=== PATIENT | male | born 1965 | race Caucasian/White ===

== ENCOUNTER 2025-05-28 11:24 | Day surgery (SDC) | payer BC ==
[~2025-05-28] VITALS: Ht 190.5 cm; Wt 115.4 kg
[~2025-05-28 11:24] MED LIST: ALBU10.7 INH; AMIO200T73 PO; APIX5TAB3 PO; FURO40TA4 PO; IPRA3AMP31 INH; MAGNESIUM PO; METF-900 PO; METO-411 PO; MULLEIN PO; MULT1CAP20 PO; POTA-366 PO; RED500CA PO; TAMS-55 PO; TORS20TA3 PO
[2025-05-28 11:54] VITALS: BP 115/78; PULSE 136; RESP 15; TEMP 97.9; O2SAT 98
[2025-05-28] MEDS ORDERED: normal saline 1000ml 1,000 ML IV SCH (11:55)
[2025-05-28] MEDS ORDERED: MIDAZolam 1mg/ml 10ml vial IV ONE (11:55)
[2025-05-28] MEDS ORDERED: fentaNYL/PF 50MCG/1 ML 2ML syringe IV ONE (11:55)
[2025-05-28] MEDS ORDERED: atropine 0.1mg/ml 10ml syringe ONE (12:29)
[2025-05-28] MEDS ORDERED: amiodarone 50MG/ML inj IV ONE (12:29)
[2025-05-28] MEDS ORDERED: fentaNYL/PF 50MCG/1 ML 2ML syringe ONE (12:29)
[2025-05-28] MEDS ORDERED: midazolam 1 mg/ML 2ml injection ONE ×3 (12:29→12:49)
[2025-05-28 13:01] LABS: MEAN PLATELET VOLUME 9.5 FL (7.4-10.4); RED CELL DISTRIBUTION WIDTH 16.4 % (11.5-14.5)
[2025-05-28 13:06] LABS: CREATININE 1.43 MG/DL (0.60-1.10); TOTAL CARBON DIOXIDE 27.2 MMOL/L (24-32); eCRCL 66 ML/MIN; eGFR 50 ML/MIN
[2025-05-28 13:09] VITALS: BP 98/63; PULSE 75; RESP 16; O2SAT 97
[2025-05-28 13:09] LABS: APTT 29 SECONDS (22-32); INR 1.3 INR
--- NOTE | 2025-05-28 13:23 | ELECTROCARDIOGRAPH REPORT ---
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 CINDI Zacarias Measurements Intervals [place] Rate: 73 P: 45 RI: 176 QRS: 122 QRSD: 98 T: -56 QT: 458 QTc: 505 Interpretive Statements Sinus rhythm Consider left atrial enlargement Right axis deviation Borderline repolarization abnormality Prolonged QT interval Electronically Signed On 05-29-2025 19:16:[address] CINDI Zacarias Please click the below link to view image of tracing.
[2025-05-28 13:24] VITALS: BP 107/76; PULSE 77; RESP 16; O2SAT 97
[2025-05-28 13:39] VITALS: BP 104/69; PULSE 76; RESP 16; O2SAT 97
[2025-05-28 13:54] VITALS: BP 94/60; PULSE 73; RESP 16; O2SAT 97
[2025-05-28 14:09] VITALS: BP 100/66; PULSE 75; RESP 16; O2SAT 97
--- NOTE | 2025-06-01 20:45 | CARDIOLOGY REPORT ---
DATE OF SERVICE: 05/28/2025 DICTATING PHYSICIAN: Pan Negro MD CARDIOVERSION DATE OF PROCEDURE: 05/28/2025. NAME OF STUDY: Electrical cardioversion. PROCEDURE: The patient was brought to cardiac short stay where she was prepped in the usual manner. After gradual increments of Versed and fentanyl, and conscious sedation was obtained, the patient was cardioverted. The patient remained clinically and hemodynamically stable throughout the procedure. IMPRESSION: Successful electrical cardioversion to normal sinus rhythm without complication. Pan Negro MD TID: [id number] RECEIPT: [id number] LISSET/YOEL
== END 2025-05-28 15:30 | disposition home or self-care (01) ==
LOC: SSTAY O 11:24
PROVIDERS: ATTEND Student in an Organized Health Care Education/Training Program
DX: I48.91 Unspecified atrial fibrillation (principal); R94.31 Abnormal electrocardiogram [ECG] [EKG]; I11.0 Hypertensive heart disease with heart failure; I50.9 Heart failure, unspecified; E78.5 Hyperlipidemia, unspecified; I42.9 Cardiomyopathy, unspecified; G47.33 Obstructive sleep apnea (adult) (pediatric); Z86.718 Personal history of other venous thrombosis and embolism; Z86.711 Personal history of pulmonary embolism; Z79.84 Long term (current) use of oral hypoglycemic drugs; Z79.01 Long term (current) use of anticoagulants; Z79.899 Other long term (current) drug therapy; Z88.6 Allergy status to analgesic agent
CPT/HCPCS: 36415; 80048; 82948; 85025; 85610; 85730; 92960; 93005; J2250; J3010; J7030; 99152; A4615; J0282; J0461

== ENCOUNTER 2025-05-30 16:14 | Inpatient (IN) | payer BC ==
[~2025-05-30] VITALS: Ht 190.5 cm; Wt 117.5 kg
--- NOTE | 2025-05-30 17:15 | ELECTROCARDIOGRAPH REPORT ---
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 Paulino Samson Measurements Intervals [place] Rate: 71 P: 52 [place]: 179 QRS: 85 QRSD: 97 T: 71 QT: 511 QTc: 556 Interpretive Statements Sinus rhythm Borderline right axis deviation Prolonged QT interval Electronically Signed On 05-31-2025 19:29:[address] Paulino Samson Please click the below link to view image of tracing.
--- NOTE | 2025-05-30 17:55 | RADIOLOGY REPORT ---
CHEST RADIOGRAPH Indication: CP Technique: Single frontal view of the chest was obtained COMPARISON: None FINDINGS: Lines and Tubes: None Lungs: Clear Pleura: No effusion. No pneumothorax. Cardiomediastinal contours: Cardiomegaly Bones: Unremarkable IMPRESSION: Cardiomegaly
[2025-05-30 17:56] LABS: MEAN PLATELET VOLUME 9.3 FL (7.4-10.4); RED CELL DISTRIBUTION WIDTH 16.5 % (11.5-14.5)
--- NOTE | 2025-05-30 17:58 | Physician Documentation ---
History of Present Illness ~ Chief Complaint: Chest Pain Stated Complaint: TRANSFER Time Seen by MD: 16:37 HPI This very pleasant 59-year-old male with a recent history of cardio conversion due to atrial fibrillation presents today with acute left-sided squeezing chest pain. Patient is currently on Eliquis, has diabetes CHF hypertension and hyperlipidemia. He does have a life vest post cardiac D fib. His flour distributor is Dr. Negro. Patient says he had 30 minutes of chest pain yesterday which ultimately resolved however it reoccurred at 9:00 a.m. this morning. He reports having an episode of shortness a breath this morning in his well. He describes the pain as a squeezing pressure. This morning when he had his symptoms he reported that to his flour distributor's who advised him to go to [facility]. There he was evaluated for cardiac event. He had negative troponins there. They did perform a CT angio abdomen and pelvis with contrast. Patient was notable for right lung infiltrates indicating likely pneumonia. Mild cardiomegaly as well Medication Reconciliation Allergies: Coded Allergies: ibuprofen (Verified Allergy, Unknown, 05/28/25) Scheduled Albuterol Sulfate/Budesonide (Airsupra 90-80 Mcg Inhaler), 1 PUFF INH TID, (Reported) Amiodarone HCl (Amiodarone HCl), 1 TAB PO DAILY, (Reported) Apixaban (Eliquis), 1 TAB PO BID, (Reported) Furosemide (Furosemide), 1 TAB PO DAILY, (Reported) Ipratropium/Albuterol Sulfate (Duoneb 2.5-0.5 Mg/3 Ml Soln), 3 ML INH Q4H, (Reported) Metformin Hcl* (Metformin ER*), 1 TAB PO BID, (Reported) Metoprolol Succinate (Metoprolol Succinate), 1 TAB PO DAILY, (Reported) Multivits-Minerals/FA/Lycopene (Men's Daily Formula Capsule), 1 TAB PO DAILY, (Reported) Potassium Chloride (Potassium Chloride), 1 TAB PO DAILY, (Reported) Red Beet (Beet Root), 2 TAB PO DAILY, (Reported) Tamsulosin Hcl* (Flomax*), 1 TAB PO DAILY, (Reported) Torsemide (Torsemide), 1 TAB PO DAILY, (Reported) [Magnesium], 2,300 MG PO DAILY, (Reported) [Mullein], 1 CAP PO BID, (Reported) Discontinued Medications Metolazone (Metolazone), 1 TAB PO DAILY, (Reported) Discontinued Reason: patient no longer taking Review of Systems All Other Systems at this time: Reviewed and Negative ROS As stated above in the HPI, otherwise all systems are reviewed and negative. Physical Exam Vital Signs: Temperature: 97.3, Source: Oral, Heart Rate: 70, Respiratory Rate: 19, BP: 111/69, Pulse Oximetry: 100, Weight: 115.000 Physical Exam General: Alert, no apparent distress. Respiratory: Lungs clear, no respiratory distress. Cardiovascular: Regular rate and rhythm, no murmurs. Gastrointestinal: Soft, nontender, nondistended. Bowels sounds present. Neurologic: Oriented x4. Psychiatric: Normal mood and affect. Skin: Normal color, warm and dry. No edema, no ecchymosis. Progress Results/Orders Results/Orders Orders - MICHELE CHAHAL [employer] FIELD COORDINATOR Chest,Single View (05/30/25 17:30) Monitor (05/30/25 17:13) Saline Lock (05/30/25 17:13) Oxygen (05/30/25 17:13) Straight Cath For Urine Sample (05/30/25 17:55) Page Hospitalist (05/30/25 18:17) Fill Out Med Reconciliation (05/30/25 18:17) Heparin 25,000 Unit/250ml Bag (Heparin 2 (05/30/25 19:05) Heparin 10,000 Unit/Ml 1ml (Heparin 10,0 (05/30/25 19:05) Cbc/Diff (05/31/25 03:00) Cbc/Diff (06/01/25 03:00) Cbc/Diff (06/02/25 03:00) Cbc/Diff (06/03/25 03:00) Cbc/Diff (06/04/25 03:00) Completed Orders - [facility] [employer] FIELD COORDINATOR Chest,Single View (05/30/25 17:30) Cbc/Diff (05/30/25 17:13) PBNP (05/30/25 17:13) Electrocardiogram (05/30/25 17:13) Hs Troponin I W Calculations (05/30/25 17:13) Hs Troponin I W Calculations (05/30/25 19:13) Hs Troponin I W Calculations (05/30/25 20:13) Urinalysis, Cult If Indicated (05/30/25 17:55) CMP (05/30/25 17:44) Pt Inr (05/30/25 19:03) PTT (05/30/25 19:03) Heparin 10,000 Unit/Ml 1ml (Heparin 10,0 (05/30/25 19:05) Electrocardiogram (05/30/25 ) Message To Nursing (05/30/25 19:30) Hgb A1c (05/30/25 17:44) Medications Received in ER Medications (Trade) Dose Ordered Sig/Magaly Route PRN Reason Start Time Stop Time Status Last Admin Dose Admin (heparin 10,000 unit/ml 1ml inj) 4,000 units ONCE ONCE IV 05/30/25 19:05 05/30/25 19:21 DC 05/30/25 19:39 4,000 UNITS Heparin Sodium/ Dextrose 250 ml @ 10 mls/hr Q25H PRN IV TO MAINTAIN PTT WITHIN RANGE 05/30/25 19:05 05/30/25 19:40 10 MLS/HR Vital Signs 05/30/25 05/30/25 05/30/25 05/30/25 16:16 17:14 18:17 18:36 Temp 97.3 Pulse 69 70 73 Resp 15 19 15 18 B/P (MAP) 93/60 111/69 (83) 103/68 (80) Pulse Ox 95 100 95 05/30/25 18:36 B/P (MAP) Laboratory Tests Test 05/30/25 17:00 05/30/25 17:44 Urine Specimen Description Urinal Urine Color Yellow Urine Clarity Clear Urine pH 6.0 Urine Specific [place] <=1.005 Urine Protein Negative Urine Glucose (UA) Negative Urine Ketones Negative Urine Occult Blood Negative Urine Nitrite Negative Urine Bilirubin Negative Urine Urobilinogen 0.2 Urine Leukocyte Esterase Negative Urine Culture Indicated Not ind Volume Urine Centrifuged 10 ml Urine Comment White Blood Count 9.4 Red Blood Count 4.75 Hemoglobin 13.8 L Hematocrit 40.9 L Mean Corpuscular Volume 86.0 Mean Corpuscular Hemoglobin 29.1 Mean Corpuscular Hemoglobin Concent 33.8 Red Cell Distribution Width 16.5 H Platelet Count 166 Mean Platelet Volume 9.3 Neutrophils (%) (Auto) 87.8 H Lymphocytes (%) (Auto) 6.9 L Monocytes (%) (Auto) 4.9 Eosinophils (%) (Auto) 0.1 Basophils (%) (Auto) 0.3 Neutrophils # (Auto) 8.3 H Lymphocytes # (Auto) 0.6 L Monocytes # (Auto) 0.5 Eosinophils # (Auto) 0.0 Basophils # (Auto) 0.0 CBC Comment Prothrombin Time 13.8 H INR International Normalized Ratio 1.4 Activated Partial Thromboplast Time 28 Coagulation Comments Sodium Level 136 Potassium Level 3.8 Chloride Level 100 Carbon Dioxide Level 24.9 Anion Gap 11 Blood Urea Nitrogen 34 H Creatinine 1.56 H Estimated GFR/1.73 m2 46 BUN/Creatinine Ratio 21.8 H Glucose Level 167 H Hemoglobin A1c 6.9 H Calcium Level 8.9 Total Bilirubin 2.0 H Aspartate Amino Transf (AST/SGOT) 149 H Alanine Aminotransferase (ALT/SGPT) 41 Alkaline Phosphatase 89 Troponin I High Sensitivity 11523 *H Troponin I High Sens Percent Delta Troponin I Hi Sens Absolute Change Pro-B-Type Natriuretic Peptide 8180 H Total Protein 6.8 Albumin 3.7 Globulin 3.1 Albumin/Globulin Ratio 1.2 Chemistry Comments Medical Decision Making Findings Patient has had intermittent chest pain while in the ED. his initial troponins at [facility] were negative. However our 1st results came back with a grossly elevated proBNP and 84284+ troponin. Starting patient on heparin along with a drip. Ordered a 2nd EKG which showed no signs of ST-elevation or ST-depression. At this point admitting him for cardiac evaluation. Differential Dx:Considerations: Include: angina, aortic dissection, chest wall pain, cholelithiasis, CHF, costochondritis, esophageal reflux/spasm, gastritis, herpes zoster, myocardial infarction, pericarditis, pleuritis, pancreatitis, pneumonia, pneumothorax, pulmonary embolus, other Departure Impression: Primary Impression: Chest pain Additional Impressions: Acute chest pain NSTEMI (non-ST elevation myocardial infarction) Referrals: NO PRIMARY CARE PROVIDER (PCP) Signature Scribe Signature: l Attestation: Scribed for Michele Chahal Salon Supervisor by Michele Avila NP . 05/30/25 17:58 MICHELE CHAHAL NP May 30, 2025 17:58
[2025-05-30 18:13] LABS: LEUKOCYTE ESTERASE ,URINE NEGATIVE (Neg); NITRITES, URINE NEGATIVE (Neg); OCCULT BLOOD,URINE NEGATIVE (Neg)
[2025-05-30 18:17] LABS: UA COLLECTION TYPE URINAL
[2025-05-30 18:22] LABS: CREATININE 1.56 MG/DL (0.60-1.10); TOTAL CARBON DIOXIDE 24.9 MMOL/L (24-32); eCRCL 60 ML/MIN; eGFR 46 ML/MIN
[2025-05-30 18:26] LABS: PRO BRAIN NATRIURETIC PEPTIDE 8180 PG/ML (0-125)
--- NOTE | 2025-05-30 19:17 | ELECTROCARDIOGRAPH REPORT ---
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 Paulino Samsno Measurements Intervals [place] Rate: 72 P: 51 DC: 176 QRS: 93 QRSD: 104 T: 78 QT: 502 QTc: 550 Interpretive Statements Sinus rhythm Probable left atrial enlargement Right axis deviation Prolonged QT interval Electronically Signed On 05-31-2025 19:29:[address] Paulino Samson Please click the below link to view image of tracing.
[2025-05-30 19:22] LABS: APTT 28 SECONDS (22-32); INR 1.4 INR
[2025-05-30] MEDS: heparin 10,000 units/1 ML INJ IV ONE (19:39)
[2025-05-30] MEDS: heparin 25,000 UNIT/250ml bag 250 ML IV PRN (19:40)
[2025-05-30] MEDS: MESSAGE TO NURSING IV ONE (19:41)
[2025-05-30] MEDS: morphine 4 MG/ML inj SYRINge IV ONE (20:07)
[2025-05-30] MEDS: ondansetron/PF 4mg/2ml inj IV ONE (20:07)
[2025-05-30] MEDS ORDERED: magnesium sulf-water 4G/100mL 100 ML IV PRN (20:10)
[2025-05-30] MEDS ORDERED: potassium Cl 40MEQ/1/2NS 520ml 520 ML IV PRN (20:10)
[2025-05-30] MEDS ORDERED: mag hydrox/Alum hydrox/simeth 30ml oral suspension PO PRN (20:10)
[2025-05-30] MEDS ORDERED: potassium Cl 20 mEq SR tablet PO PRN (20:10)
[2025-05-30] MEDS ORDERED: magnesium Cl slow-release 64mg tablet PO PRN (20:10)
[2025-05-30] MEDS ORDERED: magnesium sulf-water 2g/50mL 50 ML IV PRN (20:10)
[2025-05-30] MEDS ORDERED: magnesium hydroxide 30ml (MOM) UD suspension PO PRN (20:10)
[2025-05-30] MEDS ORDERED: ondansetron/PF 4mg/2ml inj IV PRN (20:10)
--- NOTE | 2025-05-30 20:48 | HISTORY AND PHYSICAL-Residence ---
History & Physical Providers to CC Resident Creating Document: [facility] ~ History of Present Illness Reason for Admit\Complaint: NSTEMI History of Present Illness This is a very pleasant 59-year-old male patient with a past medical history of HFrEF, atrial fibrillation status post cardioversion, prediabetes, pulmonary emboli in 2022, transferred from [facility] for chest pain that started yesterday at 9:00 a.m. and was initially intermittent. However, today at 9:00 a.m. it abruptly increased to 10/10 in intensity, persistent, radiating to the back, described as a pressure, worse with movement and improving with rest, associated with nausea, vomiting, dizziness and lightheadedness. Patient states gaining 7 lb for the last two days, but no significant shortness of breath or any respiratory symptoms. The patient had an elective cardioversion two days ago for AFib, without complication. He uses [facility] and is followed by Dr. Negro. Allergies: Coded Allergies: ibuprofen (Verified Allergy, Unknown, 05/28/25) Home Medications Home Medications Active Reported [Magnesium] 2,300 Mg PO DAILY Duoneb 2.5-0.5 Mg/3 Ml Soln (Ipratropium/Albuterol Sulfate) 0.5 Mg-3 Mg (2.5 Mg Base)/3 Ml Ampul.neb 3 Ml INH Q4H [Mullein] 1 Cap PO BID Beet Root (Red Beet) 500 Mg Capsule 2 Tab PO DAILY Men's Daily Formula Capsule (Multivits-Minerals/FA/Lycopene) 0.4 Mg-600 Mcg Capsule 1 Tab PO DAILY Airsupra 90-80 Mcg Inhaler (Albuterol Sulfate/Budesonide) 90 Mcg-80 Mcg/Actuation Hfa.aer.ad 1 Puff INH TID Flomax* (Tamsulosin HCl) 0.4 Mg Cap.sr.24h 1 Tab PO DAILY Eliquis (Apixaban) 5 Mg Tablet 1 Tab PO BID Torsemide 20 Mg Tablet 1 Tab PO DAILY Metformin ER* (Metformin HCl) 500 Mg Tab.sr.24h 1 Tab PO BID Metoprolol Succinate 100 Mg Tab.sr.24h 1 Tab PO DAILY Furosemide 40 Mg Tablet 1 Tab PO DAILY Potassium Chloride 20 Meq Tablet.er 1 Tab PO DAILY Amiodarone HCl 200 Mg Tablet 1 Tab PO DAILY Past Medical History Past Medical History HFrEF Atrial fibrillation status post cardioversion Prediabetes Pulmonary emboli in 2022 Past Surgical History Surgical History Comment Left hand surgery Meniscal surgery Past Social History Smoking: Non-Smoker Alcohol Use: None Drug Use: None Lives with: Spouse Lives In: Home ROS All Other Systems: Reviewed and Negative Constitutional: Reports: no symptoms reported Eyes: Reports: no symptoms reported ENT: Reports: no symptoms reported Respiratory: Reports: shortness of breath Cardiovascular: Reports: chest pain, diaphoresis, lightheadedness Gastrointestinal: Reports: nausea, vomiting Genitourinary: Reports: no symptoms reported Male Genitalia: Reports: no symptoms reported Neurological: Reports: no symptoms reported Musculoskeletal: Reports: no symptoms reported Integumentary: Reports: no symptoms reported Allergic/Immunologic: Reports: no symptoms reported Hematologic/Lymphatic: Reports: no symptoms reported Endocrine: Reports: no symptoms reported Psychiatric: Reports: no symptoms reported Exam Vitals: Vital Signs Date Time Temp Pulse Resp B/P (MAP) Pulse Ox O2 Delivery O2 Flow Rate FiO2 05/30/25 18:36 05/30/25 18:36 73 18 95 05/30/25 16:16 97.3 General: General: Awake and Alert, no acute distress. HEENT: Conjunctiva pink, Sclera clear, Mucus Membranes moist. Neck: Supple without masses and tenderness. Resp: Unlabored. Rales auscultated in the lower 3rd bilaterally. Heart: Regular Rate and rhythm, normal S1 and S2 without murmur, rub or gallop. Abdomen: Soft and non tender no organomegaly Extremities: Bilateral lower extremity 2+ pitting edema. No cyanosis or clubbing. Skin: Warm and Dry. Diagnostic Data Last Recorded Lab Results: 05/30/25 17405/30/25 174 Diagnostic Data: Laboratory Tests Test 05/30/25 17:44 Prothrombin Time 13.8 SECONDS (9.0-12.0) H INR International Normalized Ratio 1.4 INR Activated Partial Thromboplast Time 28 SECONDS (22-32) Coagulation Comments Advance Care Planning Advanced Care plannin - 30 Minutes (Patient wishes to be full code) Additional Plan Assessment This is a 59-year-old male patient with a past medical history of HFrEF, atrial fibrillation status post cardioversion, prediabetes, pulmonary emboli in 2022, admitted for NSTEMI. Patient was started on aspirin and heparin drip, Dr. Negro was informed and recommended keeping the patient NPO and letting Grace know in the morning. NSTEMI Heart score 7 points (high score), YOHANNES 2 points (8% all-cause mortality risk), AMANDA 118 points (7% probability of ) EKG: Sinus rhythm, nonspecific ST-T changes Troponin: 81817 - 45639 - >380125 Chest CTA (external): Thoracic aorta is normal and there is no dissection. There is no pleural effusion or pneumothorax or lymphadenopathy. DR mild infiltrates in the right lower lobe and right middle lobe. Chest x-ray: Cardiomegaly Patient received aspirin loading dose at [place] Started on heparin drip Started on atorvastatin 40 mg and lisinopril 5 mg Continue metoprolol succinate [address] Negro was informed and recommended keeping the patient NPO and letting Grace know in the morning Acute on chronic HFrEF (previous EF 25%, as per patient) Patient gained 7 lb in the last 48 hours, rales on examination and bilateral lower extremity pitting edema Started on Lasix 40 mg IV b.i.d. Hold home medication Lasix and torsemide p.o. Ordered echocardiogram Atrial fibrillation, s/p cardioversion on 05/28/2025 Current on sinus rhythm Hold Eliquis, current on heparin drip Continue amiodarone 200 mg daily Continue metoprolol 100 mg daily Chronic kidney disease - stage IIIA Creatinine 1.56 (1.43 on 05/28/2025) Monitor daily for signs of RAJESH Prediabetes Ordered A1c Hold metformin Code Status: Full code DVT prophylaxis: Heparin Analgesia/sedation: Morphine Line/tube: PIV GI prophylaxis: Pantoprazole Nutrition: NPO after midnight Physical therapy: Ordered Prognosis: Guarded Disposition: Continue medical treatment. Contact Grace in a.m.. Date of Service: May 30, 2025 Billing Provider: DEMETRIA GONZALEZ MD, LUCAS, RES May 30, 2025 20:48
[2025-05-30 21:55] VITALS: BP 104/67; PULSE 71; RESP 27; TEMP 97.3; O2SAT 93
[2025-05-30 22:00] VITALS: RESP 27; O2SAT 93
[2025-05-31] VITALS (17 sets, daily range): BP systolic 73–104; BP diastolic 39–72; PULSE 52–73; RESP 14–27; TEMP 97–97.9; O2SAT 92–98
[2025-05-31 02:24] LABS: MEAN PLATELET VOLUME 9.7 FL (7.4-10.4); RED CELL DISTRIBUTION WIDTH 16.3 % (11.5-14.5)
[2025-05-31] MEDS: normal saline 1000ml 1,000 ML IV ONE (02:39)
[2025-05-31] MEDS: MESSAGE TO NURSING IV ONE ×2 (02:55→09:10)
[2025-05-31] MEDS: heparin 10,000 units/1 ML INJ IV PRN (03:00)
[2025-05-31 03:13] LABS: CREATININE 1.91 MG/DL (0.60-1.10); TOTAL CARBON DIOXIDE 22.5 MMOL/L (24-32); eCRCL 49 ML/MIN; eGFR 36 ML/MIN
--- NOTE | 2025-05-31 07:02 | ELECTROCARDIOGRAPH REPORT ---
[facility] Test Date: 2025-05-31 Test Time: 01:38:25 Pat Name: ERIBERTO ZAPATA Department: 3rd FLOOR PCU Room: [facility] 2013 Gender: M Shank Boner: : 1965 Requested By: [facility] Order Number: [id number] Reading MD: Dr. CINDI Zacarias Measurements Intervals [place] Rate: 71 P: 65 [place]: 180 QRS: 100 QRSD: 118 T: 90 QT: 539 QTc: 586 Interpretive Statements Sinus rhythm Probable left atrial enlargement Left posterior fascicular block Consider anterior infarct Electronically Signed On 06-01-2025 13:05:[address] CINDI Zacarias Please click the below link to view image of tracing.
[2025-05-31] MEDS: K and/or MAG REPLACEMENT MC SCH (08:00)
[2025-05-31] MEDS: docusate sod 100mg capsule PO SCH (08:00)
[2025-05-31] MEDS: metoprolol succinate 25mg (24-HOUR) SR. Tablet PO SCH (08:01)
[2025-05-31] MEDS: aspirin 81mg, enteric-coated 1 TAB TABLET.DR PO SCH (08:02)
[2025-05-31] MEDS: nitroGLYCERIN-Tridil 50MG/D5W 250 ML IV SCH (11:35)
[2025-05-31] MEDS: DOBUTamine-DoBUTrex 500mg/D5W 250 ML IV SCH ×2 (12:09→23:02)
[2025-05-31] MEDS ORDERED: verapamil 2.5 mg/ml inj IV ONE (12:35)
[2025-05-31] MEDS ORDERED: LIDOcaine 1% 30ml preserv. free vial ONE (12:35)
[2025-05-31] MEDS ORDERED: fentaNYL/PF 50MCG/1 ML 2ML syringe ONE (12:36)
[2025-05-31] MEDS ORDERED: heparin 1,000unit/ml 10ml vial 10 ML ONE (12:36)
[2025-05-31] MEDS ORDERED: midazolam 1 mg/ML 2ml injection ONE (12:36)
[2025-05-31] MEDS ORDERED: clopidogrel 300mg tablet ONE (13:40)
[2025-05-31] MEDS ORDERED: ondansetron/PF 4mg/2ml inj ONE (14:15)
--- NOTE | 2025-05-31 15:12 | CONSULTATION REPORT ---
History of Present Illness Providers to CC CC: CYN NEGRO MD ~ Reason for Admit\Admit Dx: Cardiology consultation History of Present Illness This is a 59-year-old gentleman with past medical history significant for pulmonary embolism mi retention, diabetes type 2, atrial fibrillation. He had a DVT with PE in October 2024 after long car travel. Previous to that he had a DVT after knee surgery. In October he had an LVEF of 50-55%. This decrease to about 25 %. He had a negative stress test in the office. Presented secondary to chest pain and found to have an NSTEMI. Chest pain likely admission of the chest radiating to the back. Associated nausea, vomiting, dizziness. EKG with no acute ST changes and maintaining sinus rhythm. Taken to the cardiac catheterization lab urgently with Dr. Miriam Negro and found to have an 80% RCA stenosis which was successfully stented. Currently, resting comfortably in bed. Denies chest pain or pressure. No shortness a breath. No dizziness, lightheadedness or syncope. Complains of continued lower extremity edema. Initially he had lost about 35 lb but recently gained seven back. Allergies: Coded Allergies: ibuprofen (Verified Allergy, Unknown, 05/28/25) Home Medications Home Medications Active Reported [Magnesium] 2,300 Mg PO DAILY Duoneb 2.5-0.5 Mg/3 Ml Soln (Ipratropium/Albuterol Sulfate) 0.5 Mg-3 Mg (2.5 Mg Base)/3 Ml Ampul.neb 3 Ml INH Q4H [Mullein] 1 Cap PO BID Beet Root (Red Beet) 500 Mg Capsule 2 Tab PO DAILY Men's Daily Formula Capsule (Multivits-Minerals/FA/Lycopene) 0.4 Mg-600 Mcg Capsule 1 Tab PO DAILY Airsupra 90-80 Mcg Inhaler (Albuterol Sulfate/Budesonide) 90 Mcg-80 Mcg/Actuation Hfa.aer.ad 1 Puff INH TID Flomax* (Tamsulosin HCl) 0.4 Mg Cap.sr.24h 1 Tab PO DAILY Eliquis (Apixaban) 5 Mg Tablet 1 Tab PO BID Torsemide 20 Mg Tablet 1 Tab PO DAILY Metformin ER* (Metformin HCl) 500 Mg Tab.sr.24h 1 Tab PO BID Metoprolol Succinate 100 Mg Tab.sr.24h 1 Tab PO DAILY Furosemide 40 Mg Tablet 1 Tab PO DAILY Potassium Chloride 20 Meq Tablet.er 1 Tab PO DAILY Amiodarone HCl 200 Mg Tablet 1 Tab PO DAILY Past Medical History Medical History Comment Pulmonary embolism/DVT as described in HPI Atrial fibrillation in October 2024 status post cardioversion currently maintaining sinus rhythm Dilated cardiomyopathy Heart failure with reduced ejection fraction Hypertension Type 2 diabetes mellitus with hemoglobin A1c 6.9 Past Surgical History Surgical History Comment Orthopedic Past Family History Family History: FH: tuberculosis FATHER, , Age: 80, Cause: CHF (congestive heart failure) Past Social History Social History Comment Does not smoke. No alcohol or recreational drug use. Lives with . Physical Exam Last Vital Signs Recorded: RN Vital Signs have been reviewed: Yes, Temperature: 97.0, Source: Temporal, Heart Rate: 73, Respiratory Rate: 17, BP: 91/54, Pulse Oximetry: 92, Weight: 117.500 Physical Exam General: Awake, alert, oriented. No apparent distress Neck: Supple. Normal range of motion. No JVD Respiratory: Lungs are clear to auscultation bilaterally. No respiratory distress. On 4 L via nasal cannula. Chest: Normal shape and size. No accessory muscle use. Cardiovascular: Regular rate and rhythm. S1-S2. No murmur, gallop, rub. Gastrointestinal: Abdomen is soft. Nontender to palpation. Bowel sounds present. Extremities: Plus one lower extremity edema. No cyanosis or clubbing. Femoral cath site, right dressing clean dry intact. No ecchymosis or swelling. Neurologic: Alert and oriented x4. Nonfocal Psychiatric: Normal mood and affect. Skin: Normal color. Warm and dry. Review of Systems ROS Patient complained of chest pain in the center of the chest that radiated to the back described as pressure. Complains of intermittent edema and weight gain. Results Diagram Lab Result Diagram: 05/31/25 0213 05/31/25 0213 Assessment/Plan Additional Plan This is a 59-year-old male who presented with chest pain. The following is his problem list: NSTEMI I sensitivity troponins trended up to greater than [id number]. Underwent PCI of the RCA with Dr. Miriam Negro. --aspirin 81 mg daily for 30 days given that he is on oral anticoagulation --Plavix 75 mg daily. 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 Lipid panel ordered --referral for cardiac rehab Cardiomyopathy Heart failure with reduced ejection fraction, acute on chronic TTE demonstrates an LVEF of 15-20%. LV mildly dilated. RV normal size with decreased function. Mild left atrial dilation. Moderate TR. Previous echocardiogram with severe biatrial dilation. Severe RV dilation. --continue metoprolol succinate --previous office visit on April 26, 2025 was recommended start Entresto, spironolactone and future SGLT2. He has not started these medications. --recommend wean off dobutamine. Atrial fibrillation Status post cardioversion --currently maintaining sinus rhythm --continue metoprolol succinate --continue Eliquis 5 mg b.i.d. Diabetes Hemoglobin A1c 6.9 --hold metformin for 48 hours after cardiac catheterization. Consider SGLT2 given heart failure Acute kidney injury Creatinine up to 1.9. --management per hospitalist Case discussed with Dr. Miriam Negro. In agreement with this plan. We will follow up as an outpatient. Please contact Dr. Negro is any weekend needs. Supervising MD Supervising Physician: DEVENDRA Baker NP May 31, 2025 15:12
[2025-05-31] MEDS: ipratropium/albuterol 3ml nebule NEB SCH (15:29)
[2025-05-31 15:51] LABS: CHOL/HDL RATIO 4.2 (0.00-4.99); LDL CHOLESTEROL 117 MG/DL (50-100)
[2025-05-31] MEDS: ringers solution, lactated 500ml IV solution IV ONE (18:07)
[2025-05-31] MEDS ORDERED: HYDROcodone/acetaminophen 5mg/325mg tablet PO PRN (18:25)
[2025-05-31] MEDS ORDERED: OXAZEpam 15mg capsule PO PRN (18:25)
[2025-05-31] MEDS ORDERED: HYDROcodone/acetaminophen 10/325mg tab PO PRN (18:25)
--- NOTE | 2025-05-31 18:51 | RADIOLOGY REPORT ---
CHEST RADIOGRAPH Indication: SOB Technique: DI CHEST,SINGLE VIEW COMPARISON: None FINDINGS: The cardiac silhouette is enlarged. The lungs demonstrate bilateral patchy airspace opacities. The pu lmonary vasculature is prominent. Possible small bilateral pleural effusions. There is no pneumothora x. IMPRESSION: Cardiomegaly with pulmonary vascular congestion and bilateral patchy airspace opacities. Possible small bilateral pleural effusions
--- NOTE | 2025-05-31 18:54 | CONSULTATION REPORT - RESIDENT ---
Consult Providers to CC Resident Creating Document: JIMBO WADE, RES CC: LATASHA CANNON MD History of Present Illness Reason for Admit\Complaint: Chest pain History of Present Illness A 59-year-old male with a PMH of HFrEF, AFib s/p cardioversion presented to the ED as a transfer from [place] on 05/30/2025 in view of angina equivalent chest pain. Patient described persistent pressure-like substernal 10/10 chest pain with radiation to the back, alleviated with rest and aggravated on exertion since morning of the day of admission. Patient had associated nausea, vomitings, dizziness and lightheadedness. Patient endorses seven MPV again for the last three days. Patient denies SOB, PND or orthopnea. Patient underwent cardiac catheterization with stent placement in the RCA on 05/31/2025. Patient remained to be hypotensive with map less than 65 on dobutamine at 7.5 mics per kg per minute. Therefore, ICU was consulted in view of persistent hypotension. Allergies: Coded Allergies: ibuprofen (Verified Allergy, Unknown, 05/28/25) Home Medications Home Medications Active Reported [Magnesium] 2,300 Mg PO DAILY Duoneb 2.5-0.5 Mg/3 Ml Soln (Ipratropium/Albuterol Sulfate) 0.5 Mg-3 Mg (2.5 Mg Base)/3 Ml Ampul.neb 3 Ml INH Q4H [Mullein] 1 Cap PO BID Beet Root (Red Beet) 500 Mg Capsule 2 Tab PO DAILY Men's Daily Formula Capsule (Multivits-Minerals/FA/Lycopene) 0.4 Mg-600 Mcg Capsule 1 Tab PO DAILY Airsupra 90-80 Mcg Inhaler (Albuterol Sulfate/Budesonide) 90 Mcg-80 Mcg/Actuation Hfa.aer.ad 2 Puff INH QID Flomax* (Tamsulosin HCl) 0.4 Mg Cap.sr.24h 1 Tab PO DAILY Eliquis (Apixaban) 5 Mg Tablet 1 Tab PO BID Torsemide 20 Mg Tablet 1 Tab PO DAILY Metformin ER* (Metformin HCl) 500 Mg Tab.sr.24h 1 Tab PO BID Metoprolol Succinate 100 Mg Tab.sr.24h 1 Tab PO DAILY Furosemide 40 Mg Tablet 1 Tab PO DAILY Potassium Chloride 20 Meq Tablet.er 1 Tab PO DAILY Amiodarone HCl 200 Mg Tablet 1 Tab PO DAILY Past Medical History Past Medical History HFrEF Atrial fibrillation status post cardioversion Prediabetes Pulmonary emboli in 2022 Past Surgical History Surgical History Comment Left hand surgery Meniscal surgery Family History Family History: FH: tuberculosis FATHER, , Age: 80, Cause: CHF (congestive heart failure) Past Social History Social History Comment Denies smoking, consumption of alcohol, marijuana or illicit drugs Lives at home with spouse ROS ROS All other systems reviewed in full and negative except for the pertinent positives mentioned in the HPI Exam Vitals: Vital Signs Date Time Temp Pulse Resp B/P (MAP) Pulse Ox O2 Delivery O2 Flow Rate FiO2 05/31/25 17:30 54 96/47 (63) 05/31/25 15:39 18 Nasal Cannula 3.0 05/31/25 15:29 95 32 05/31/25 15:00 97.3 General: General: Alert, awake, oriented, not in acute distress HEENT: PERRLA, no icterus, pallor, lymphadenopathy, carotid bruit Respiratory system: Bilateral vesicular breath sounds heard, crackles heard in the right middle and lower lobes CVS: S1-S2 heard, no murmurs/rubs/gallop GI: Soft, nontender, no organomegaly, no guarding/rigidity, bowel sounds present Neuro: No focal neurological deficits present Extremities: Bilateral 3+ pitting edema present Skin: Warm and dry Diagnostic Data Last Recorded Lab Results: 05/31/253 05/31/25 0213 Diagnostic Data: Laboratory Tests Test 05/30/25 17:44 05/31/25 14:40 Prothrombin Time 13.8 SECONDS (9.0-12.0) H INR International Normalized Ratio 1.4 INR Activated Partial Thromboplast Time 28 SECONDS (22-32) APTT (Heparin Protocol) > 139 SECONDS (45-60) *H Coagulation Comments Additional Plan Assessment: A 59-year-old male with PMH of AFib s/p cardioversion, HFrEF presented to the ED as a transfer from [place] in view of elevated troponins and angina equivalent chest pain. Patient is admitted for the evaluation management of NSTEMI. Patient underwent cardiac catheterization with stent placement in the RCA on 05/31/2025. Patient started to have low blood pressures with low map on dobutamine drip. ICU was therefore consulted in view of persistent hypotension. 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
[2025-05-31] MEDS ORDERED: non-formulary drug (Metformin Hcl* (Metformin ER*) 1 TAB) PO SCH (20:00)
[2025-05-31 20:24] LABS: MEAN PLATELET VOLUME 10.3 FL (7.4-10.4); RED CELL DISTRIBUTION WIDTH 16.6 % (11.5-14.5)
--- NOTE | 2025-05-31 20:25 | RADIOLOGY REPORT ---
CHEST RADIOGRAPH Indication: sob Technique: Single frontal view of the chest was obtained Comparison: DI CHEST,SINGLE VIEW on DOS: 05/31/25, DI CHEST,SINGLE VIEW on DOS: 05/30/25 FINDINGS: Lines and Tubes: None Lungs: Right lower lung zone opacity. Pleura: No effusion. No pneumothorax. Cardiomediastinal contours: Pkna-up-[id number] Cardiomegaly with mild atherosclerotic calcification and uncoiling of the aorta. Bones: No acute osseous abnormality. IMPRESSION: Cdnc-at-[id number] cardiomegaly with right lower lung zone pneumonia/atelectasis.
[2025-05-31 20:39] LABS: PRO BRAIN NATRIURETIC PEPTIDE 20399.0 PG/ML (0-125)
--- NOTE | 2025-05-31 21:03 | PROGRESS NOTE- Residence ---
Progress Note - Resident Providers to CC Resident Creating Document: SUNG ANSARI, RES ~ Antibiotic Timeout Antibiotic Ordered?: No Subjective Patient seen and examined at the bedside today. The patient stated that he continues to have mild left-sided chest pain. He also reported orthopnea paroxysmal nocturnal dyspnea. He denied any other concerns or complaints at the moment. He was educated regarding his diagnosis and the possibility of Dr. Negro planning to do a cardiac catheterization today. The patient was in agreement agreement with the plan. Objective Vital Signs Date Time Temp Pulse Resp B/P (MAP) Pulse Ox O2 Delivery O2 Flow Rate FiO2 05/31/25 19:44 12 05/31/25 18:30 53 05/31/25 17:30 96/47 (63) 05/31/25 15:39 Nasal Cannula 3.0 05/31/25 15:29 95 32 05/31/25 15:00 97.3 Result Diagram: 05/31/25193405/31/25 0213 General: Pleasant gentleman, very pale-appearing face. Not in acute distress HEENT: Conjunctiva pink, Sclera clear, Mucus Membranes moist. Neck: Supple without masses and tenderness. Resp: Unlabored. Mild crackles heard in the right lower and mid lobe. Heart: Regular Rate and rhythm, normal S1 and S2 without murmur, rub or gallop. Abdomen: Soft and non tender no organomegaly Extremities: 2+ pitting edema noted in bilateral lower extremities. Skin: Warm and Dry. Neurology: No focal motor or sensory deficits. Coagulation Studies Laboratory Tests Test 05/30/25 17:44 05/31/25 19:35 Prothrombin Time 13.8 SECONDS (9.0-12.0) H INR International Normalized Ratio 1.4 INR Activated Partial Thromboplast Time 28 SECONDS (22-32) APTT (Heparin Protocol) 33 SECONDS (45-60) L Coagulation Comments Assessment Assessment 59-year-old male with past medical history of heart failure with reduced ejection fraction, atrial fibrillation status post cardioversion, pulmonary embolism is admitted in the hospital for evaluation and management of acute NSTEMI. Plan Plan Acute NSTEMI Cardiogenic shock The patient's troponins trended as high as greater than [id number]. 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 Negro was consulted. He recommended starting the patient on IV heparin drip. The patient had a PCI with the right coronary artery stenting done today by Dr. Negro. Heparin drip has been discontinued. Patient is started on aspirin 81 mg daily for 30 days, Plavix 75 mg daily, atorvastatin 80 mg p.o. daily. The patient has been having significant hypotension. Post cardiac catheterization the patient was continued on IV dobutamine drip. There was no significant improvement in the patient's blood pressure with the IV dobutamine drip. Fluid challenge with the IV LR 500 mL in 30 minutes. In view of the patient's significant hypotension with the patient's continuous process tanner rotary drum Dr. Sheets was consulted. As per Dr. Sheets's recommendation of the top waddy Dr. Perez was consulted. Per Dr. Perez with the most likely cause of the patient's shock was IV dobutamine which can act as a vasodilator. Dr. Perez discontinued the patient's dobutamine and recommended monitoring the patient's blood pressure and transferring the patient into the intensive care unit if the patient develops a significant hypotension and starting the patient on IV Levophed and consulting of the night tele top waddy. Hold the patient's metoprolol succinate in view of the patient's significant hypotension. Hold Lasix if the patient's systolic blood pressure is less than 110. Acute Congestive heart failure with reduced ejection fraction Dilated cardiomyopathy The patient needs to be started on GDMT. Currently holding the patient's GDMT in view of his acute cardiogenic shock. Continue management as per the Cardiology recommendations. Atrial fibrillation status post cardioversion Continue amiodarone 200 mg p.o. b.i.d. Received metoprolol succinate in the morning. Currently on hold. The patient heart rate is well-controlled. Restarted Eliquis 5 mg p.o. b.i.d. Continue telemetry monitoring. RAJESH on stage III CKD Most likely secondary to acute tubular stasis The patient was started on IV dobutamine drip which is currently discontinued. Continue to monitor the renal function test. We will consider Nephrology consultation if the patient continues to have worsening renal function. Newly diagnosed type 2 diabetes mellitus Started the patient on hyperglycemia/hypoglycemia protocol. Start the patient on Jardiance for GDMT and BG control. Heart healthy diet. Recommended lifestyle modifications. We will continue to monitor the patient's blood glucose levels closely. CODE STATUS: Full code DVT prophylaxis: Eliquis GI prophylaxis: None Diet: Carb controlled diet Sung Nuguru, MD Internal Medicine Resident, PGY-2 Date of Service: May 31, 2025 Billing Provider: KAREN LIN MD,SUNG WALTERS, RES May 31, 2025 21:03
[2025-05-31] MEDS ORDERED: dextrose 50%-water 50ml dispensing syringe IV PRN ×2 (21:10)
[2025-05-31] MEDS ORDERED: DEXTROSE 15 GM of carb/4 tabs (each vial/BOTTLE has 4 tablets) PO PRN ×2 (21:10)
[2025-05-31] MEDS ORDERED: glucagon, human recombinant 1mg kit SUBCUT PRN (21:10)
--- NOTE | 2025-05-31 21:38 | RADIOLOGY REPORT ---
CHEST RADIOGRAPH Indication: line placement Technique: Single frontal view of the chest was obtained Comparison: DI CHEST,SINGLE VIEW on DOS: 05/31/25, DI CHEST,SINGLE VIEW on DOS: 05/31/25, DI CHEST,SINGLE VIEW on DOS: 05/30/25 FINDINGS: Lines and Tubes: Intervally placed right IJ catheter terminates over the right superior mediastinum. Lungs: Similar right basilar airspace disease. No evidence of new pulmonary opacity. Pleura: No effusion. No pneumothorax. Cardiomediastinal contours: Unchanged, enlarged heart size. Bones: No acute osseous abnormality. IMPRESSION: 1. Intervally placed right IJ catheter terminates over the expected position of the SVC confluence. 2. No other significant interval change from 1.2 hours prior.
[2025-05-31 22:00] LABS: OXYGEN SATURATION (MIXED VEN) 33.1 % (60-80); PO2 MIXED VENOUS (TEMP COR) 22.1 mmHg (35-46)
[2025-05-31 22:19] LABS: ABG BASE EXCESS -5.1 mmol/L (-2.0-3.0); ABG HCO3 18.9 mmol/L (21.0-28.0); ABG OXYGEN SATURATION 56.9 % (94.0-98.0); ABG PCO2 (T) 31.6 mmHg (35.0-48.0); ABG PH (T) 7.391 (7.350-7.450); ABG PO2 (T) 31.9 mmHg (83.0-108.0); ALLEN'S TEST Modified; FCOHb 1.1 % (0.5-1.5); FHHb 42.5 % (0.0-5.0); FIO2 32.0 mmHg/%; FLOW 3 L/min; FMetHb 0.3 % (0.0-1.5); FO2Hb 56.1 % (94.0-98.0); MODE nc; PATIENT TEMPERATURE 36.3; TOTAL HEMOGLOBIN 14.4 G/dl (13.5-17.5)
[2025-05-31 22:45] LABS: MEAN PLATELET VOLUME 10.1 FL (7.4-10.4); RED CELL DISTRIBUTION WIDTH 16.4 % (11.5-14.5)
[2025-05-31] MEDS: NORepinephrine 8mg/ 250ml NS 250 ML IV SCH (23:03)
[2025-05-31 23:04] LABS: CREATININE 2.67 MG/DL (0.60-1.10); PHOSPHORUS 5.5 MG/DL (2.3-4.5); TOTAL CARBON DIOXIDE 22.5 MMOL/L (24-32); eCRCL 35 ML/MIN; eGFR 25 ML/MIN
[2025-06-01] VITALS (43 sets, daily range): BP systolic 92–123; BP diastolic 38–69; PULSE 57–134; RESP 11–29; O2SAT 92–99
[2025-06-01 00:08] LABS: ABG BASE EXCESS -6.0 mmol/L (-2.0-3.0); ABG HCO3 17.6 mmol/L (21.0-28.0); ABG OXYGEN SATURATION 99.8 % (94.0-98.0); ABG PCO2 (T) 29.5 mmHg (35.0-48.0); ABG PH (T) 7.393 (7.350-7.450); ABG PO2 (T) 215.5 mmHg (83.0-108.0); ALLEN'S TEST Modified; FCOHb 0.8 % (0.5-1.5); FHHb 0.2 % (0.0-5.0); FIO2 71.0 mmHg/%; FMetHb 0.0 % (0.0-1.5); FO2Hb 99.0 % (94.0-98.0); MODE salter nc; PATIENT TEMPERATURE 37.0; PEEP 15 cm H2O; TOTAL HEMOGLOBIN 14.1 G/dl (13.5-17.5)
[2025-06-01] MEDS: piperacillin/tazo 4.5gm/100ml 100 ML IV SCH (00:47)
[2025-06-01 03:56] LABS: MEAN PLATELET VOLUME 10.1 FL (7.4-10.4); RED CELL DISTRIBUTION WIDTH 16.6 % (11.5-14.5)
[2025-06-01 04:09] LABS: CREATININE 2.63 MG/DL (0.60-1.10); TOTAL CARBON DIOXIDE 25.4 MMOL/L (24-32); eCRCL 36 ML/MIN; eGFR 25 ML/MIN
[2025-06-01] MEDS: INSULIN LISPRO 100 UNIT/ML INSULN.PEN MULTI-DOSE SQ SCH (07:00)
--- NOTE | 2025-06-01 07:52 | PROCEDURE NOTE- Residance ---
Procedure Note Providers to CC ~ Planned Procedure Internal Jugular Central Line Indications Rapid decompensation, persistent hypotension, norepinephrine and dobutamine administration, Hemodynamic monitoring Post Operative Dx: Cardiogenic shock Case Operator Dr Devante Valdivia, Dr Rajani Hu, Dr Haley Type of Anesthesia Local Lidocaine Informed Consent Obtained Description A time out was performed. My hands were washed immediately prior to the procedure. I wore a surgical cap, mask with protective eyewear, full gown and sterile gloves throughout the procedure. The patient was placed in Trendelenburg position. RIGHT chest region was prepped using chlorhexidine scrub and draped in sterile fashion using a full drape and sterile probe cover and sterile gel employed. The medial and lateral heads of the sternocleidomastoid muscle were identified as was the carotid pulse. The Internal Jugular vein was identified using the ultrasound. Anesthesia was achieved over the vein using 1% lidocaine. Using real-time out of plane guidance, the introducer needle was inserted into the right Internal Jugular vein under direct ultrasound visualization. Venous blood was withdrawn. The syringe was removed and a josephine dewire was advanced into the introducer needle. The guidewire was visualized in the Internal Jugular Vein by ultrasound. A small incision was made at the skin surface with a scalpel and the introducer needle was exchanged for a dilator over the guidewire. After appropriate dilation was obtained, the dilator was exchanged over the wire for a curved central venous catheter. The wire was removed and the catheter was sutured in place. A sterile sorbaview shield was placed over the catheter at the insertion site. The patient tolerated the procedure without any hemodynamic compromise. At time of procedure completion, all ports aspirated and flushed properly. Post-procedure chest x-ray reviewed and line is in appropriate position. Estimated blood loss is 5cc. Estimated Blood Loss 5mL Complication None X-Ray Findings X-Ray Findings 1. Ldxn-[id number] cardiomegaly with right lower lung zone pneumonia/atelectasis. 2. Intervally placed right IJ catheter terminates over the expected position of the SVC confluence. Date of Service: Jun 01, 2025 Billing Provider: CHARLES HALEY MD, LUCAS, RES Jun 01, 2025 07:52
[2025-06-01] MEDS: AIRSUPRA IH SCH (07:57)
[2025-06-01] MEDS ORDERED: RED BEET PO SCH (08:00)
[2025-06-01 08:20] LABS: OXYGEN SATURATION (MIXED VEN) 61.7 % (60-80); PO2 MIXED VENOUS (TEMP COR) 36.9 mmHg (35-46)
--- NOTE | 2025-06-01 09:01 | PROGRESS NOTE ---
Subjective Subjective Patient seen and examined at the bedside today. The patient denies any chest pain. He underwent cardiac catheterization with an RCA stent yesterday. Postoperative course was complicated by hypotension. The patient was on 10 mics per kg per minute of dobutamine when I saw him. Dobutamine was discontinued with the hope that the patient's blood pressure would improve. Contrary, the patient became diaphoretic and lightheaded and became even more hypotensive and was transferred to the ICU. He is now on dobutamine and norepinephrine drips. Reason for visit: Pulmonary critical care follow-up Reviewed: Care Plan, H&P, Labs, Radiology Review of Systems Changes from previous H/P or p: No Changes Daily Progress Note Exam Vitals Vital Signs Date Time Temp Pulse Resp B/P (MAP) Pulse Ox O2 Delivery O2 Flow Rate FiO2 06/01/25 08:07 74 14 Nasal Cannula 4.0 06/01/25 07:58 96 48 06/01/25 06:23 98.2 113/68 (83) Result Diagram: 06/01/25 0340 06/01/25 0340 Exam Awake , alert, and oriented x4, resting comfortably in the bed, in no acute distress HEENT: Atraumatic, normocephalic, EOMI, anicteric sclera ; pink conjunctiva Neck: Trachea midline. Supple, full range of motion, no JVD Cardiac: Regular rhythm, regular rate with mild systolic murmurs all over the precordium. Respiratory: Equal breath sounds bilaterally, no tachypnea, no wheezing ,rub or rales, Chest wall is symmetric and without deformity. Gastrointestinal: Abdomen symmetric, non-distended, soft, non-tender, normal bowel sounds x4 quadrant, normoactive, no hepatosplenomegaly Musculoskeletal: No pedal edema, no cyanosis Neurological: Speech is clear, alert, and oriented x 4. No motor or sensory deficit, deep tendon reflexes normal, cerebellar intact. Cranial nerves II-XII intact. Skin: Warm and dry Results Coagulation Studies Laboratory Tests Test 05/30/25 17:44 05/31/25 19:35 Prothrombin Time 13.8 SECONDS (9.0-12.0) H INR International Normalized Ratio 1.4 INR Activated Partial Thromboplast Time 28 SECONDS (22-32) APTT (Heparin Protocol) 33 SECONDS (45-60) L Coagulation Comments VTE VTE Risk Score VTE Risk Score Reference Ranges: Score 0-1 = Low Risk (Aggressive mobilization; early ambulation; no VTE prophylaxis required) Score 2: Moderate Risk (Intermittent/Pneumatic Compression Device OR Lovenox/Heparin/Coumadin) Score 3-4: High Risk (Intermittent/Pneumatic Compression Device AND Lovenox/Heparin/Coumadin) Score > or = 5: Highest Risk (Intermittent/Pneumatic Compression Device AND Lovenox/Heparin/Coumadin) Assessment/Plan Assessment 59-year-old male with past medical history of heart failure with reduced ejection fraction, atrial fibrillation status post cardioversion, pulmonary embolism is admitted in the hospital for evaluation and management of acute NSTEMI. Plan Acute NSTEMI: Status post RCA stent Cardiogenic shock: CVP around 18-23 cm Acute Congestive heart failure with reduced ejection fraction: Most recent chest x-ray does not show any CHF. Acute respiratory failure: On nasal cannula oxygen. Dilated cardiomyopathy : EF apparently around 20% Atrial fibrillation status post cardioversion RAJESH on stage III CKD Shock liver secondary to cardiogenic shock: Expected to resolve with druze of adequate organ perfusion pressures. Newly diagnosed type 2 diabetes mellitus: Use insulin protocol to maintain serum glucose levels of around 140-180 mg/dL. Titrate oxygen to keep her pulse oximetry reading of at least 88%. Plan: Increase Lasix to 40 mg IV q.6 hours and at Zaroxolyn 10 mg p.o. q.12 hours. Follow electrolytes and replace accordingly. Reduced dobutamine to two mics per kg per minute and wean off norepinephrine to maintain a map around 65 mmHg. Titrate oxygen to keep her pulse oximeter reading of at least 88%. CODE STATUS: Full code DVT prophylaxis: Anticoagulated with Eliquis for AFib GI prophylaxis: None Diet: Carb controlled diet Overall prognosis: Guarded Critical care time in excess of 35 minutes. Expected Outcome/Goals Expected Outcomes/Goals: maintain stable wt, meet at least ~75% estimated nutrient needs w/ diet advancement, bowel regularity, maintain skin integrity, Glu 80-180mg/dl LATASHA CANNON MD Jun 01, 2025 09:01
[2025-06-01] MEDS: potassium Cl 20 mEq SR tablet PO SCH (09:08)
[2025-06-01] MEDS: EMPAGLIFLOZIN 10 MG TABLET PO SCH (09:09)
[2025-06-01] MEDS: multivitamins, therapeutics tablet PO SCH (09:10)
--- NOTE | 2025-06-01 09:54 | CONSULTATION REPORT ---
Consult Providers to CC CC: CHARLES HALEY MD ~I was emergently called to asses the patient as he was in respiratory distress and appeared cold and clammy History of Present Illness Reason for Admit\Complaint: Shortness of Breath & Chest Discomfort History of Present Illness I was called emergently to see this gentleman who has a hx of cardiac disease he was sitting at the edge of his bed and his Blood pressure was on the low side He was with a MAP in the 50's He was quite uncomfortable with a feeling of impending doom I reviewed his history and database and it was highly likely he was in cardiogenic shock He has a hx of ischemic heart disease and had undegone RCA stent placement We emergently moved him to the ICU and started him on Dobutamine and Levophed He started doing much better and was perfusing his organs better he woke up and was more interactive and described himself as feeling great I discussed his care with the ICU nurse multiple times in the course of the shift Current Medications Medications (Trade) Dose Ordered Sig/Magaly Route PRN Reason Start Time Stop Time Status Last Admin Dose Admin Heparin Sodium (Porcine) (heparin 10,000 unit/ml 1ml inj) 4,000 units ONCE ONCE IV 05/30/25 19:05 05/30/25 19:21 DC 05/30/25 19:39 4,000 UNITS Heparin Sodium/ Dextrose 250 ml @ 12 mls/hr [id number] PRN IV TO MAINTAIN PTT WITHIN RANGE 05/30/25 19:05 05/31/25 16:33 DC 05/30/25 19:40 10 MLS/HR Heparin Sodium (Porcine) (heparin 10,000 unit/ml 1ml inj) bolus for correct... PRN PRN IV per protocol-CARDIAC 05/30/25 19:05 05/31/25 15:17 DC 05/31/25 03:00 4,000 UNITS Morphine Sulfate (morphine inj.) 4 mg ONCE ONCE IV 05/30/25 19:30 05/30/25 19:31 DC 05/30/25 20:07 4 MG Ondansetron HCl (Zofran 4mg/2ml vial) 4 mg ONCE ONCE IV 05/30/25 19:30 05/30/25 19:31 DC 05/30/25 20:07 4 MG Morphine Sulfate (morphine inj.) 2 mg Q4H PRN IV severe pain (7-10) 05/30/25 20:10 05/31/25 19:44 2 MG Docusate Sodium (Colace capsule) 100 mg BID PO 05/31/25 08:00 06/01/25 09:08 100 MG Aspirin (Ecotrin tablet) 1 tab DAILY PO 05/31/25 08:00 06/01/25 09:08 1 TAB Amiodarone HCl (Cordarone tablet) 200 mg DAILY PO 05/31/25 08:00 05/31/25 08:03 200 MG Metoprolol Succinate (Toprol XL (24-hour) tablet) 100 mg DAILY PO 05/31/25 08:00 05/31/25 21:22 DC 05/31/25 08:01 100 MG Atorvastatin Calcium (Lipitor tablet) 40 mg DAILY PO 05/31/25 08:00 05/31/25 21:10 DC 05/31/25 08:01 40 MG Lisinopril (Zestril tablet) 5 mg DAILY PO 05/31/25 08:00 06/01/25 09:10 5 MG Pantoprazole Sodium (Protonix 40mg IV) 40 mg DAILY IV 05/31/25 08:00 06/01/25 09:07 40 MG Sodium Chloride 1,000 ml @ 1,000 mls/hr ONCE ONCE IV 05/31/25 02:10 05/31/25 03:09 DC 05/31/25 02:39 1,000 MLS/HR Non-Formulary Medication 1 each ONCE ONCE IV 05/31/25 02:55 05/31/25 02:56 DC 05/31/25 02:55 1 EACH Non-Formulary Medication 1 each ONCE ONCE IV 05/31/25 09:10 05/31/25 09:11 DC 05/31/25 09:10 1 EACH Dobutamine HCl/ Dextrose 250 ml @ 35.25 mls/ hr Q7H6M IV 05/31/25 11:35 05/31/25 22:57 DC 05/31/25 12:09 10.575 MLS/HR Apixaban (Eliquis tablet) 5 mg BID PO 05/31/25 20:00 06/01/25 09:09 5 MG Albuterol/ Ipratropium (ipratrop/ albuterol 0.5-3(2.5) MG/3ml nebule) 3 ml Q4H NEB 05/31/25 16:00 06/01/25 07:57 3 ML Multivitamins Therapeutic (Theragran-M tablet) 1 each DAILY PO 06/01/25 08:00 06/01/25 09:10 1 EACH Potassium Chloride (K-DUR tablet) 20 meq DAILY PO 06/01/25 08:00 06/01/25 09:08 20 MEQ Clopidogrel Bisulfate (Plavix tablet) 75 mg DAILY PO 06/01/25 08:00 06/01/25 09:10 75 MG Lactated Ringer's (lactated ringers solution) 250 ml ONCE ONCE IV 05/31/25 18:00 05/31/25 18:05 DC 05/31/25 18:07 250 ML Norepinephrine Bitartrate 250 ml @ 22.031 mls/ hr [id number] IV 05/31/25 20:00 05/31/25 23:03 28.641 MLS/HR Piperacillin/ Tazobactam/ Dextrose 100 ml @ 25 mls/hr Q8H IV 06/01/25 00:00 06/01/25 09:07 25 MLS/HR Atorvastatin Calcium (Lipitor tablet) 80 mg DAILY PO 06/01/25 08:00 06/01/25 09:09 80 MG Empaglifozin (JARDIANCE 10mg tablet) 10 mg DAILY PO 06/01/25 08:00 06/01/25 09:09 10 MG Dobutamine HCl/ Dextrose 250 ml @ 7.05 mls/hr [id number] IV 05/31/25 22:55 05/31/25 23:02 10.575 MLS/HR Furosemide (Lasix inj) 40 mg Q6H IV 06/01/25 08:50 06/01/25 09:08 40 MG Allergies: Coded Allergies: ibuprofen (Verified Allergy, Unknown, 05/28/25) Home Medications Home Medications Active Reported [Magnesium] 2,300 Mg PO DAILY Duoneb 2.5-0.5 Mg/3 Ml Soln (Ipratropium/Albuterol Sulfate) 0.5 Mg-3 Mg (2.5 Mg Base)/3 Ml Ampul.neb 3 Ml INH Q4H [Mullein] 1 Cap PO BID Beet Root (Red Beet) 500 Mg Capsule 2 Tab PO DAILY Men's Daily Formula Capsule (Multivits-Minerals/FA/Lycopene) 0.4 Mg-600 Mcg Capsule 1 Tab PO DAILY Airsupra 90-80 Mcg Inhaler (Albuterol Sulfate/Budesonide) 90 Mcg-80 Mcg/Actuation Hfa.aer.ad 2 Puff INH QID Flomax* (Tamsulosin HCl) 0.4 Mg Cap.sr.24h 1 Tab PO DAILY Eliquis (Apixaban) 5 Mg Tablet 1 Tab PO BID Torsemide 20 Mg Tablet 1 Tab PO DAILY Metformin ER* (Metformin HCl) 500 Mg Tab.sr.24h 1 Tab PO BID Metoprolol Succinate 100 Mg Tab.sr.24h 1 Tab PO DAILY Furosemide 40 Mg Tablet 1 Tab PO DAILY Potassium Chloride 20 Meq Tablet.er 1 Tab PO DAILY Amiodarone HCl 200 Mg Tablet 1 Tab PO DAILY Family History Family History: FH: tuberculosis FATHER, , Age: 80, Cause: CHF (congestive heart failure) ROS ROS Unable to do as on video Exam Vitals: Vital Signs Date Time Temp Pulse Resp B/P (MAP) Pulse Ox O2 Delivery O2 Flow Rate FiO2 06/01/25 09:10 63 06/01/25 09:01 121/62 06/01/25 08:07 14 Nasal Cannula 4.0 06/01/25 07:58 96 48 06/01/25 06:23 98.2 Diagnostic Data Last Recorded Lab Results: 06/01/25 0340 06/01/25 0340 Diagnostic Data: Laboratory Tests Test 05/30/25 17:44 05/31/25 19:35 Prothrombin Time 13.8 SECONDS (9.0-12.0) H INR International Normalized Ratio 1.4 INR Activated Partial Thromboplast Time 28 SECONDS (22-32) APTT (Heparin Protocol) 33 SECONDS (45-60) L Coagulation Comments Additional Plan 59 yr old man with Cardiogenic Shock s/p RCA stent placement Had earlier received fluids I cautioned against more fluids Reviewing database and seeing him clinically he was in a low flow state I opted for Dobutamine backed up with Levophed ---goal MAP 65mmHg He responded nicely to this when I came back to check on him Expect that as his hemodynamics stabilizes his kidney failure which is likely a Cardiorenal Process will improve Will transition care to the day team in the AM Labs all reviewed significant for leukocytosis, hyponatremia Will monitor Case discussed multiple times with nursing and the residents that helped us as well. Date of Service: Jun 01, 2025 Billing Provider: CHARLES HALEY MD Common Visit Codes: [id number] CARE 30-74 MIN CHARLES HALEY MD Jun 01, 2025 09:54
[2025-06-01 14:11] LABS: OSMOLALITY UA 359 MOSM/K (50-1400)
[2025-06-01 14:27] LABS: CREATININE,URINE RANDOM 43.0 MG/DL; UA UREA RANDOM 589.0 MG/DL
--- NOTE | 2025-06-01 16:14 | PROGRESS NOTE- Residence ---
Progress Note - Resident Providers to CC Resident Creating Document: KULWANT ANSARI, RES ~ Antibiotic Timeout Antibiotic Ordered?: Yes Subjective Patient is seen and examined at the bedside today. Patient is transferred to the intensive care unit after he was significantly hypotensive and had to be started back on IV dobutamine and IV norepinephrine. Patient stated that he slept very well last night. He stated that he has been feeling well since morning. Denies any shortness of breaths, chest pain, nausea, vomiting, headache, confusion at the moment. Denied any other concerns or complaints at the moment. Objective Vital Signs Date Time Temp Pulse Resp B/P (MAP) Pulse Ox O2 Delivery O2 Flow Rate FiO2 06/01/25 15:00 98.2 64 14 110/50 (70) 98 Nasal Cannula 2.0 06/01/25 14:49 28 Result Diagram: 06/01/25 0340 06/01/25 0340 General: Pleasant gentleman, does not appear to be in acute distress. Has a life vest on. HEENT: Conjunctiva pink, Sclera clear, Mucus Membranes moist. Neck: Supple without masses and tenderness. Resp: Unlabored. No adventitious breath sounds heard. Heart: Regular Rate and rhythm, normal S1 and S2 without murmur, rub or gallop. Abdomen: Soft and non tender no organomegaly Extremities: 1+ pitting edema noted in bilateral lower extremities. Skin: Warm and Dry. Neurology: No focal motor or sensory deficits. Coagulation Studies Laboratory Tests Test 05/30/25 17:44 05/31/25 19:35 Prothrombin Time 13.8 SECONDS (9.0-12.0) H INR International Normalized Ratio 1.4 INR Activated Partial Thromboplast Time 28 SECONDS (22-32) APTT (Heparin Protocol) 33 SECONDS (45-60) L Coagulation Comments Assessment Assessment 59-year-old male with past medical history of heart failure with reduced ejection fraction, atrial fibrillation status post cardioversion, pulmonary embolism is admitted in the hospital for evaluation and management of acute NSTEMI. The patient underwent PCI with a stenting of the RCA by Dr. Negro yesterday. The patient is currently being evaluated and managed for acute cardiogenic shock. Plan Plan Acute NSTEMI Cardiogenic shock The patient has been transferred to the intensive care unit has a he was significantly hypotensive and was requiring the urgent need to be put on IV dobutamine and IV pressors-norepinephrine. Patient is currently on IV dobutamine at 2 mics per kg per minute and norepinephrine at 0.14 mics per kg per minute. The patient's blood pressures have been stable. Plan to wean the patient off pressors as tolerated. Plan Continue aspirin 81 mg p.o. daily for 30 days, Plavix 75 mg p.o. daily and atorvastatin 80 mg p.o. daily. Continue management as per the metal checker's recommendation. Acute Congestive heart failure with reduced ejection fraction Dilated cardiomyopathy The patient received lisinopril 5 mg p.o. today. Recommended to stop lisinopril, washout for at least 36 hours and start the patient on Entresto. Metoprolol succinate-currently on hold. Started the patient on Jardiance 10 mg p.o. daily . Recommend advancing the GDMT with the spironolactone. The patient is started on Lasix 40 mg IV q.6 hours and metolazone 10 mg p.o. b.i.d. by metal checker. Follow up accordingly as per their recommendations. Strict I&O monitoring is older recommended. RAJESH on CKD stage 3 Most likely secondary to decreased renal perfusion in view of the patient's acute cardiogenic shock. Patient is currently on IV dobutamine and IV Levophed drip. Perfusion will improve. Continue to monitor the patient's renal function test and manage accordingly. Patient is also started on IV Lasix and p.o. metolazone. Recommend close monitoring of the patient's renal function test. Newly diagnosed type 2 diabetes mellitus Started the patient on hyperglycemia/hypoglycemia protocol. Start the patient on Jardiance for GDMT and BG control. Heart healthy diet. Recommended lifestyle modifications. Atrial fibrillation status post cardioversion Continue amiodarone 200 mg p.o. b.i.d. Received metoprolol succinate in the morning. Currently on hold. The patient heart rate is well-controlled. Restarted Eliquis 5 mg p.o. b.i.d. Continue telemetry monitoring. CODE STATUS: Full code DVT prophylaxis: Eliquis GI prophylaxis: None Diet: Carb controlled diet Disposition: The patient is currently in the intensive care unit under the management of the metal checker. Appreciate recommendations. We will assume the patient's care once he has been downgraded from the ICU. Date of Service: Jun 01, 2025 Billing Provider: KAREN LIN MD,KULWANT WALTERS, RES Jun 01, 2025 16:14
[2025-06-01] MEDS: midodrine 5mg tablet PO ONE (16:37)
[2025-06-01] MEDS: amiodarone 150mg/dext, iso-os 100 ML IV ONE (18:52)
[2025-06-01 18:57] LABS: CREATININE 2.25 MG/DL (0.60-1.10); TOTAL CARBON DIOXIDE 25.8 MMOL/L (24-32); eCRCL 42 ML/MIN; eGFR 30 ML/MIN
[2025-06-01] MEDS: amiodarone/D5 360MG/200ML BAG 200 ML IV SCH (19:13)
[2025-06-01] MEDS: insulin glargine (Lantus) pen - multi-dose SQ SCH (20:58)
--- NOTE | 2025-06-01 21:14 | CARDIOLOGY REPORT ---
APPROVED REPORT EXAM: Comprehensive 2D, Doppler, and color-flow Echocardiogram. Patient Location: 3022 Blood Pressure: 104/62 mmHg Heart Rate: 76 bpm Indications Myocardial Infarction Troponin: 125,000 Patient wearing a Life Vest HX of Atrial Fibrillation w/ cardioversion Congestive Heart Failure Diabetes RESEARCH PHYSIOLOGIST: Ruiz Negro MD Previous ECHO: 04/08/25, CVC, EF: 25; mLVE; sevBAE; Castro/TR 2D Dimensions IVSd 1.1 (0.7-1.1cm) LVDd 6.0 cm PWd 1.1 (0.7-1.1cm) IVSs 1.1 (0.8-1.2cm) LVDs 5.7 (2.5-4.0cm) PWs 1.3 (0.8-1.2cm) LVOT Diameter 2.27 (1.8-2.4cm) LVEF(%) 9.9 (>50%) Ao Asc Diam.3.48 cmIVC 25.67 mm FS (%) 4.4 % SV 17.5 ml CO 1.3 L/min M-Mode Dimensions Left Atrium(MM) 4.26 (2.5-4.0cm) Aortic Root 3.11 (2.2-3.7cm) Aortic Cusp Exc 1.74 (1.5-2.0cm) MV EPSS 1.7 (<0.5cm) Aortic Valve AoV Peak Moises. 121.5 cm/s AoV VTI 21.3 cm AO Peak GR. 5.9 mmHg AO Mean GR. 3 mmHg LVOT VTI 16.53 cm LVOT Peak Moises. 82.1 cm/s STANISLAV(VTI)/BSA 3.13 cm2/m2 STANISLAV (VTI) 3.13 cm2 AI P 1/2 Time 364 ms Mitral Valve MV E Velocity 49.8 cm/s MV Peak Gr. 2 mmHg MV DECEL TIME 232 ms MV A Velocity 26.1 cm/s MV PHT 68 ms E/A Ratio 1.9 MVA (PHT) 3.24 cm2 MV VMax66.6 cm/s TDI Lateral E' P. V4.76 cm/s E/Lateral E' 10.5 Pulmonary Valve PAEDP11.75 mmHg Tricuspid Valve TR P. Velocity 323 cm/s RAP ESTIMATE 10 mmHg TR Peak Gr. 42 mmHg RVSP 52 mmHg LEFT VENTRICLE Left ventricle is mildly dilated with normal wall thickness. Overall systolic function is severely de creased (known). LVEF is 15-20%. RIGHT VENTRICLE The right ventricle is normal size with mildly decreased function. Elevated right heart pressures wit h an RVSP of 52 mmHg. ATRIA Left atrium is mildly dilated. The right atrium size is normal. AORTIC VALVE Trileaflet AV appears mildly sclerotic without stenosis. Moderate eccentric posteriorly directed insu fficiency present. MITRAL VALVE Mitral valve leaflets are mildly thickened with mild annular calcification. No stenosis. Mild regurgi tation. TRICUSPID VALVE The tricuspid valve is normal in structure with mild to moderate regurgitation. PULMONIC VALVE The pulmonary valve is normal in structure with trace insufficiency. GREAT VESSELS The aortic root is normal in size. IVC is dilated and collapses less than 50% with inspiration. PERICARDIUM Mild loculated pericardial effusion present without hemodynamic compromise. No echo indications of p ericardial tamponade. Pleural effusion present. Other Information Study Quality: Adequate Conclusion Left ventricle is mildly dilated with normal wall thickness. Overall systolic function is severely d ecreased (known). LVEF is 15-20%. The right ventricle is normal size with mildly decreased function. Elevated right heart pressures wit h an RVSP of 52 mmHg. Left atrium is mildly dilated. Trileaflet AV appears mildly sclerotic without stenosis. Moderate eccentric posteriorly directed in sufficiency present. Mitral valve leaflets are mildly thickened with mild annular calcification. No stenosis. Mild regur gitation. The tricuspid valve is normal in structure with mild to moderate regurgitation. The pulmonary valve is normal in structure with trace insufficiency. Mild loculated pericardial effusion present without hemodynamic compromise. No echo indications of p ericardial tamponade
[2025-06-02] VITALS (33 sets, daily range): BP systolic 82–124; BP diastolic 39–76; PULSE 102–137; RESP 14–25; O2SAT 92–97
[2025-06-02 00:44] LABS: MEAN PLATELET VOLUME 9.4 FL (7.4-10.4); RED CELL DISTRIBUTION WIDTH 16.5 % (11.5-14.5)
[2025-06-02 00:49] LABS: CREATININE 2.19 MG/DL (0.60-1.10); TOTAL CARBON DIOXIDE 27.4 MMOL/L (24-32); eCRCL 43 ML/MIN; eGFR 31 ML/MIN
[2025-06-02] MEDS: potassium Cl 20 mEq SR tablet PO PRN (01:16)
[2025-06-02] MEDS: digoxin 250mcg/ml 2ml ampule IV ONE ×3 (01:49→23:05)
[2025-06-02] MEDS: midodrine 5mg tablet PO SCH (09:01)
--- NOTE | 2025-06-02 11:14 | PROGRESS NOTE ---
Subjective Subjective Patient is seen and examined at the bedside today. He is awake, alert, conversant and in no apparent distress. Norepinephrine drip has been weaned off. He is on dobutamine 3 mcg/kg per minute. Blood pressures improved with diuresis that could be due to optimization of the stretch of the heart muscle(Murphy-Starling). Reason for visit: Pulmonary critical care follow-up Reviewed: Care Plan, H&P, Labs, Radiology Review of Systems Changes from previous H/P or p: No Changes Daily Progress Note Exam Vitals Vital Signs Date Time Temp Pulse Resp B/P (MAP) Pulse Ox O2 Delivery O2 Flow Rate FiO2 06/02/25 08:19 114 14 Nasal Cannula 2.0 06/02/25 08:10 96 28 06/02/25 05:53 115/53 (73) 06/02/25 04:30 96.4 Result Diagram: 06/02/25 0020 06/02/25 0020 Exam Awake , alert, and oriented x4, resting comfortably in the bed, in no acute distress HEENT: Atraumatic, normocephalic, EOMI, anicteric sclera ; pink conjunctiva Neck: Trachea midline. Supple, full range of motion, no JVD Cardiac: Regular rhythm, regular rate with mild systolic murmurs all over the precordium. Respiratory: Equal breath sounds bilaterally, no tachypnea, no wheezing ,rub or rales, Chest wall is symmetric and without deformity. Gastrointestinal: Abdomen symmetric, non-distended, soft, non-tender, normal bowel sounds x4 quadrant, normoactive, no hepatosplenomegaly Musculoskeletal: Bilateral 2+ lower extremity edema, no cyanosis Neurological: Speech is clear, alert, and oriented x 4. No motor or sensory deficit, deep tendon reflexes normal, cerebellar intact. Cranial nerves II-XII intact. Skin: Warm and dry Results Coagulation Studies Laboratory Tests Test 05/30/25 17:44 05/31/25 19:35 Prothrombin Time 13.8 SECONDS (9.0-12.0) H INR International Normalized Ratio 1.4 INR Activated Partial Thromboplast Time 28 SECONDS (22-32) APTT (Heparin Protocol) 33 SECONDS (45-60) L Coagulation Comments VTE VTE Risk Score VTE Risk Score Reference Ranges: Score 0-1 = Low Risk (Aggressive mobilization; early ambulation; no VTE prophylaxis required) Score 2: Moderate Risk (Intermittent/Pneumatic Compression Device OR Lovenox/Heparin/Coumadin) Score 3-4: High Risk (Intermittent/Pneumatic Compression Device AND Lovenox/Heparin/Coumadin) Score > or = 5: Highest Risk (Intermittent/Pneumatic Compression Device AND Lovenox/Heparin/Coumadin) Assessment/Plan Assessment 59-year-old male with past medical history of heart failure with reduced ejection fraction, atrial fibrillation status post cardioversion, pulmonary embolism is admitted in the hospital for evaluation and management of acute NSTEMI. The patient underwent PCI with a stenting of the RCA by Dr. Negro yesterday. The patient is currently being evaluated and managed for acute cardiogenic shock. Plan Acute NSTEMI: Status post RCA stent Cardiogenic shock: CVP was 18-23 cm and therefore diuretic therapy was initiated. Acute Congestive heart failure with reduced ejection fraction: Most recent chest x-ray does not show any CHF, but with significant bilateral 2+ lower extremity edema. Acute respiratory failure: On nasal cannula oxygen. Dilated cardiomyopathy : EF apparently around 20% Atrial fibrillation status post cardioversion: On amiodarone drip and remains with AFib with RVR. RAJESH on stage III CKD Shock liver secondary to cardiogenic shock: Expected to resolve with cheondoism of adequate organ perfusion pressures. Newly diagnosed type 2 diabetes mellitus: Serum glucose control at goal rate with insulin sliding scale and Lantus insulin. Titrate oxygen to keep her pulse oximetry reading of at least 88%. Hypokalemia: Replace per protocol. Plan: Continue Lasix to 20 mg IV q.6 hours and at Zaroxolyn 5 mg p.o. q.12 hours. Follow electrolytes and replace accordingly. Wean dobutamine and discontinue if possible. Titrate oxygen to keep her pulse oximeter reading of at least 88%. Load with the digoxin. CODE STATUS: Full code DVT prophylaxis: Anticoagulated with Eliquis for AFib GI prophylaxis: None Diet: Carb controlled diet Overall prognosis: Guarded Critical care time in excess of 35 minutes. Expected Outcome/Goals Expected Outcomes/Goals: maintain stable wt, meet at least ~75% estimated nutrient needs w/ diet advancement, bowel regularity, maintain skin integrity, Glu 80-180mg/dl LATASHA CANNON MD Jun 02, 2025 11:14
[2025-06-02] MEDS: digoxin 250mcg/ml 2ml ampule IV STA (11:20)
--- NOTE | 2025-06-02 18:08 | PROGRESS NOTE- Residence ---
Progress Note - Resident Providers to CC Resident Creating Document: RAJANI ALVARES YULIA, RACHELL ~ Antibiotic Timeout Antibiotic Ordered?: Yes Subjective The patient was seen and examined at bedside today. He continues to be on dobutamine and Levophed drips. Also on amiodarone drip for AFib with RVR. Objective Vital Signs Date Time Temp Pulse Resp B/P (MAP) Pulse Ox O2 Delivery O2 Flow Rate FiO2 06/02/25 17:00 122 20 104/54 (71) 93 Room Air 06/02/25 13:00 97.5 06/02/25 09:00 2.0 06/02/25 08:10 28 Result Diagram: 06/02/25 0020 06/02/25 1357 General: Pleasant gentleman, does not appear to be in acute distress. Has a life vest on. HEENT: Conjunctiva pink, Sclera clear, Mucus Membranes moist. Neck: Supple without masses and tenderness. Resp: Unlabored. No adventitious breath sounds heard. Heart: Regular Rate and rhythm, normal S1 and S2 without murmur, rub or gallop. Abdomen: Soft and non tender no organomegaly Extremities: 1+ pitting edema noted in bilateral lower extremities. Skin: Warm and Dry. Neurology: No focal motor or sensory deficits. Coagulation Studies Laboratory Tests Test 05/30/25 17:44 05/31/25 19:35 Prothrombin Time 13.8 SECONDS (9.0-12.0) H INR International Normalized Ratio 1.4 INR Activated Partial Thromboplast Time 28 SECONDS (22-32) APTT (Heparin Protocol) 33 SECONDS (45-60) L Coagulation Comments Assessment Assessment A 59-year-old male with past medical history of heart failure with reduced ejection fraction, atrial fibrillation status post cardioversion, pulmonary embolism is admitted in the hospital for evaluation and management of acute NSTEMI. The patient underwent PCI with a stenting of the RCA by Dr. Negro yesterday. The patient is currently being evaluated and managed for acute cardiogenic shock. Plan Plan Acute NSTEMI Cardiogenic shock Patient currently on diuretic therapy with Lasix 20 mg IV q.6 H and Zaroxolyn 5 mg q.12h. Patient is currently on IV dobutamine at 2 mics per kg per minute and norepinephrine. Plan to wean the patient off pressors as tolerated. Continue aspirin 81 mg p.o. daily for 30 days, Plavix 75 mg p.o. daily and atorvastatin 80 mg p.o. daily. Continue management as per the customer advocate's recommendation. Acute Congestive heart failure with reduced ejection fraction Dilated cardiomyopathy Continue diuresis with Lasix and Zaroxolyn. Metoprolol succinate-currently on hold. Started the patient on Jardiance 10 mg p.o. daily . Recommend advancing the GDMT with the spironolactone. Strict I&O monitoring is older recommended. RAJESH on CKD stage 3 Most likely secondary to decreased renal perfusion in view of the patient's acute cardiogenic shock. Patient is currently on IV dobutamine and IV Levophed drip. Perfusion will improve. Continue to monitor the patient's renal function test and manage accordingly. Recommend close monitoring of the patient's renal function test. Newly diagnosed type 2 diabetes mellitus Started the patient on hyperglycemia/hypoglycemia protocol. Start the patient on Jardiance for GDMT and BG control. Heart healthy diet. Recommended lifestyle modifications. Atrial fibrillation with RVR History of cardioversion Currently on IV amiodarone drip. Received metoprolol succinate in the morning. Currently on hold. The patient heart rate is well-controlled. Restarted Eliquis 5 mg p.o. b.i.d. Continue telemetry monitoring. Ischemic hepatitis Liver function expected to improve with jew of perfusion. CODE STATUS: Full code Diet: Carb controlled diet Disposition: The patient is currently in the intensive care unit under the management of the customer advocate. Appreciate recommendations. We will assume the patient's care once he has been downgraded from the ICU. Rajani Alvares MD Internal Medicine Resident, PGY-2 Date of Service: Jun 02, 2025 Billing Provider: KAREN LIN MD,RAJANI BENDER, RES Jun 02, 2025 18:08
[2025-06-03] VITALS (30 sets, daily range): BP systolic 87–137; BP diastolic 47–81; PULSE 71–127; RESP 14–20; TEMP 97.2–97.3; O2SAT 91–97
[2025-06-03] MEDS ORDERED: NORepinephrine 8 MG in NS 250 ML BAG (32 mcg/ml) IV ONE (08:00)
[2025-06-03 09:21] LABS: MEAN PLATELET VOLUME 8.7 FL (7.4-10.4); RED CELL DISTRIBUTION WIDTH 16.3 % (11.5-14.5)
[2025-06-03 09:35] LABS: CREATININE 1.75 MG/DL (0.60-1.10); TOTAL CARBON DIOXIDE 32.2 MMOL/L (24-32); eCRCL 54 ML/MIN; eGFR 40 ML/MIN
[2025-06-03] MEDS ORDERED: digoxin 125mcg (0.125mg) tablet PO SCH (12:45)
[2025-06-03] MEDS: digoxin 250mcg/ml 2ml ampule IV ONE (14:19)
[2025-06-03] MEDS ORDERED: magnesium sulf-water 4G/100mL 100 ML IV PRN (15:00)
[2025-06-03] MEDS ORDERED: magnesium sulf-water 2g/50mL 50 ML IV PRN (15:00)
[2025-06-03] MEDS ORDERED: magnesium Cl slow-release 64mg tablet PO PRN (15:00)
[2025-06-03] MEDS ORDERED: potassium Cl 40MEQ/1/2NS 520ml 520 ML IV PRN (15:00)
[2025-06-03] MEDS ORDERED: potassium Cl 20 mEq SR tablet PO PRN (15:00)
--- NOTE | 2025-06-03 15:18 | PROGRESS NOTE- Residence ---
Progress Note - Resident Providers to CC Resident Creating Document: JIMBO NEGRETE RES CC: VENICE KAISER MD ~ Antibiotic Timeout Antibiotic Ordered?: No Subjective The patient was seen and examined at bedside today. Patient's heart rate seems to be ranging between 100s and 140s. Patient continues to be in AFib. Patient's blood pressure seems to be soft but is maintained with a map of above 65. Patient is completely asymptomatic. Patient is stable for transferred to the floor. Objective Vital Signs Date Time Temp Pulse Resp B/P (MAP) Pulse Ox O2 Delivery O2 Flow Rate FiO2 06/03/25 14:19 122 06/03/25 12:00 19 102/58 (73) 94 Room Air 06/03/25 11:13 0.0 06/03/25 11:08 28 06/03/25 09:00 98.2 Result Diagram: 06/03/25 0908 06/03/25 09 General: Alert, awake, oriented, not in acute distress HEENT: PERRLA, no icterus, pallor, lymphadenopathy, carotid bruit Respiratory system: Bilateral vesicular breath sounds heard, no adventitious breath sounds CVS: S1-S2 heard, no murmurs/rubs/gallop GI: Soft, nontender, no organomegaly, no guarding/rigidity, bowel sounds present Neuro: No focal neurological deficits present Extremities: 1+ pitting edema present in bilateral lower extremities Skin: Warm and dry Coagulation Studies Laboratory Tests Test 05/30/25 17:44 05/31/25 19:35 Prothrombin Time 13.8 SECONDS (9.0-12.0) H INR International Normalized Ratio 1.4 INR Activated Partial Thromboplast Time 28 SECONDS (22-32) APTT (Heparin Protocol) 33 SECONDS (45-60) L Coagulation Comments Assessment Assessment A 59-year-old male with past medical history of heart failure with reduced ejection fraction, atrial fibrillation status post cardioversion, pulmonary embolism is admitted in the hospital for evaluation and management of acute NSTEMI. The patient underwent PCI with a stenting of the RCA by Dr. Negro yesterday. The patient is currently being evaluated and managed for acute cardiogenic shock. Plan Plan Cardiogenic shock, most likely Probably secondary to NSTEMI, POA CAD s/p PTCA stent in RCA HFrEF, in acute exacerbation Septic shock, ruled out Patient currently on diuretic therapy with Lasix 20 mg IV q.6 H and Zaroxolyn 5 mg q.12h. Dobutamine and norepinephrine drip discontinued Map goal greater than 65 Continue aspirin 81 mg p.o. daily for 30 days, Plavix 75 mg p.o. daily and atorvastatin 80 mg p.o. daily. Continue to monitor vitals Consider optimization GDM T Strict Is&Os RAJESH on CKD stage 3 Most likely secondary to decreased renal perfusion in view of the patient's acute cardiogenic shock. Patient undergoing HD with 3 L of fluid removal, we will titrate as tolerated Nephrology recommended placement of TDC TDC to be placed by Dr. Gutiérrez on Tuesday or Tuesday based on his scheduled Eliquis continues to be on hold Type 2 DM, new onset diagnosis On hyper/hypoglycemia protocol On Jardiance for GDM TN blood glucose controlled . Atrial fibrillation with RVR History of cardioversion Currently on IV amiodarone drip. Consider transitioned to p.o. Patient received digitalization with 500 followed by 250 and 125. We will be continued with p.o. after one dose of IV 250 digoxin is being given Held metoprolol succinate in view of hypotension and soft blood pressures, re- evaluate in a.m. Hold Eliquis 5 mg p.o. b.i.d. last dose of Eliquis on 06/03/2025 Continue telemetry monitoring. Ischemic hepatitis Liver function expected to improve with confucianism of perfusion. CODE STATUS: Full code Diet: Heart healthy Disposition: Currently stable for transferred to the floor. Continue to monitor telemetry Jimbo Negrete MD Internal Medicine, PGY 2 Date of Service: Jun 03, 2025 Billing Provider: VENICE KAISER MD,JIMBO, RES Jun 03, 2025 15:18
--- NOTE | 2025-06-03 15:38 | PROGRESS NOTE- Residence ---
Progress Note - Resident Providers to CC Resident Creating Document: SUNG VIDAL RACHELL WALTERS ~ Antibiotic Timeout Antibiotic Ordered?: No Subjective Patient seen and examined at the bedside today. The patient has been downgraded from the ICU today. He has been maintaining stable blood pressures off of the dobutamine and norepinephrine drip. He denied any chest pain, palpitation, nausea, vomiting or any shortness of breath today. Denied any other concerns or complaints. Objective Vital Signs Date Time Temp Pulse Resp B/P (MAP) Pulse Ox O2 Delivery O2 Flow Rate FiO2 06/03/25 15:00 112 19 126/66 (86) 93 Room Air 06/03/25 13:00 99.0 06/03/25 11:13 0.0 06/03/25 11:08 28 Result Diagram: 06/03/25 0908 06/03/25 09 General: Pleasant gentleman, does not appear to be in acute distress. Has a life vest on. HEENT: Conjunctiva pink, Sclera clear, Mucus Membranes moist. Neck: Supple without masses and tenderness. Resp: Unlabored. No adventitious breath sounds heard. Heart: Irregularly irregular rate and rhythm. Tachycardia with heart rate fluctuating in the 100s to 140s. Abdomen: Soft and non tender no organomegaly Extremities: 1+ pitting edema noted in bilateral lower extremities. Skin: Warm and Dry. Neurology: No focal motor or sensory deficits. Coagulation Studies Laboratory Tests Test 05/30/25 17:44 05/31/25 19:35 Prothrombin Time 13.8 SECONDS (9.0-12.0) H INR International Normalized Ratio 1.4 INR Activated Partial Thromboplast Time 28 SECONDS (22-32) APTT (Heparin Protocol) 33 SECONDS (45-60) L Coagulation Comments Assessment Assessment 59-year-old male with past medical history of heart failure with reduced ejection fraction, atrial fibrillation status post cardioversion, pulmonary embolism good med in the hospital for evaluation and management of NSTEMI. The patient underwent PCI with a stenting of the RCA on 05/31/2025. The patient is also being managed in the hospital for acute cardiogenic shock, atrial fibrillation with rapid ventricular rate. He was initially treated with the IV amiodarone drip, IV digoxin and is currently being transitioned to p.o. amiodarone and p.o. digoxin. Plan Plan Acute NSTEMI Cardiogenic shock The patient underwent percutaneous coronary intervention and RCA stenting with Dr. Negro on 05/31/2025. The patient has been successfully weaned off of IV dobutamine and norepinephrine drip yesterday. Has been maintaining stable blood pressures. Continue aspirin 81 mg p.o. daily for 30 days, Plavix 75 mg p.o. daily and atorvastatin 80 mg p.o. daily. Started the patient on midodrine 10 mg p.o. t.i.d. Continue close monitoring of the patient's vitals. He has been downgraded from the intensive care unit to the floor. Acute Congestive heart failure with reduced ejection fraction Dilated cardiomyopathy The patient has been successfully weaned off of IV dobutamine and norepinephrine drip. Started the patient on Jardiance 10 mg p.o. daily. Started the patient on metoprolol succinate 25 mg p.o. daily. Lisinopril on hold. Once blood pressure stabilizes we can start the patient on Entresto. Patient is also started on IV Lasix and p.o. metolazone. Patient has been negative 5 L per 24 hour for the last two days. Reduced metolazone two 5 mg p.o. b.i.d. and Lasix 20 mg IV b.i.d. Follow up with Dr. Sheets post discharge to further optimize GDMT. RAJESH on CKD stage 3 Most likely secondary to renal tubular stasis, acute cardiogenic shock. The patient has been diuresing significantly well. Renal function has improved significantly and is trending down. Creatinine is 1.75 today. Continue strict input and output monitoring. Continue monitoring renal function test closely. Newly diagnosed type 2 diabetes mellitus Started the patient on hyperglycemia/hypoglycemia protocol. Start the patient on Jardiance for GDMT and BG control. Heart healthy diet. Recommended lifestyle modifications. Atrial fibrillation with rapid ventricular rate The patient was started on IV amiodarone drip. Converting the amiodarone drip to p.o. 200 mg b.i.d.. Started the patient on IV rapid digitalization. We will continue p.o. diltiazem at 125 mcg daily. Restarted the patient on metoprolol succinate 25 mg p.o. daily. Restarted Eliquis 5 mg p.o. daily. Continue telemetry monitoring. CODE STATUS: Full code DVT prophylaxis: Eliquis GI prophylaxis: None Diet: Carb controlled diet. Sung Vidal MD Internal Medicine Resident, PGY-3 Date of Service: Jun 03, 2025 Billing Provider: KAREN LIN MD,SUNG WALTERS, RES Jun 03, 2025 15:38
--- NOTE | 2025-06-03 17:28 | PROGRESS NOTE ---
Progress Note Cardiology Providers to CC ~ Subjective Subjective Patient underwent angiogram on Tuesday with PCI of the RCA. Developed significant hypotension later that night and was subsequently transferred down to the ICU. He underwent central line placement and required IV norepinephrine for blood pressure support. His dobutamine and norepinephrine were discontinued yesterday morning. He has been maintaining fairly normal blood pressure. Went back into atrial fibrillation and has had rapid ventricular response. Given his low blood pressures with AFib RVR he was treated with digoxin. Heart rate currently in the 115-140 range on p.o. digoxin. Objective Result Diagram: 06/03/2590706/03/25907 Objective General: Awake, alert, oriented. No apparent distress Neck: Supple. Normal range of motion. No JVD Respiratory: Lungs are clear to auscultation bilaterally. No respiratory distress. Chest: Normal shape and size. No accessory muscle use. Cardiovascular: Irregularly irregular. Variable S1-S2. No murmur, gallop, rub. Gastrointestinal: Abdomen is soft. Nontender to palpation. Bowel sounds present. Extremities: No lower extremity edema, cyanosis or clubbing. Neurologic: Alert and oriented x4. Nonfocal Psychiatric: Normal mood and affect. Skin: Normal color. Warm and dry. Coagulation Studies Laboratory Tests Test 05/30/25 17:44 05/31/25 19:35 Prothrombin Time 13.8 SECONDS (9.0-12.0) H INR International Normalized Ratio 1.4 INR Activated Partial Thromboplast Time 28 SECONDS (22-32) APTT (Heparin Protocol) 33 SECONDS (45-60) L Coagulation Comments Problem\Assessment\Plan Additional Plan This is a 59-year-old male who presented with chest pain. The following is his problem list: NSTEMI Hi sensitivity troponins trended up to greater than [id number]. Underwent PCI of the RCA with Dr. Miriam Negro. --aspirin 81 mg daily for 30 days given that he is on oral anticoagulation --Plavix 75 mg daily. 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 Lipid panel ordered --referral for cardiac rehab Cardiogenic shock --norepinephrine has been weaned off. Dobutamine has been weaned off. --now on midodrine 10 mg t.i.d. for blood pressure support. Cardiomyopathy Heart failure with reduced ejection fraction, acute on chronic TTE demonstrates an LVEF of 15-20%. LV mildly dilated. RV normal size with decreased function. Mild left atrial dilation. Moderate TR. Previous echocardiogram with severe biatrial dilation. Severe RV dilation. --continue metoprolol succinate --previous office visit on April 26, 2025 was recommended start Entresto, spironolactone and future SGLT2. He has not started these medications. --06/03/25: Has not now been weaned off dobutamine. We will start metoprolol for rate control. If able to tolerate we will start Entresto. Hold off on spironolactone given acute kidney injury. --currently receiving IV Lasix 20 mg q.6 hours as well as metolazone. We will recheck NT proBNP in the morning. Weaned down diuretics as tolerated. He is fluid volume-5 L yesterday and 5 L the day before that. Atrial fibrillation Status post cardioversion 05/28/25 --continue Eliquis 5 mg b.i.d. --given RVR with hypotension recommend continuing with digoxin. We will add metoprolol and monitor closely. --continue amiodarone 200 mg daily Diabetes Hemoglobin A1c 6.9 --hold metformin for 48 hours after cardiac catheterization. Consider SGLT2 given heart failure Acute kidney injury Monitoring kidney function. --management per hospitalist Hypokalemia --recommend replacement per protocol Case discussed with Dr. Miriam Negro. Supervising Physician: DEVENDRA Baker NP Jun 03, 2025 17:28
[2025-06-03] MEDS: metoprolol succinate 25mg (24-HOUR) SR. Tablet PO SCH (18:38)
[2025-06-03] MEDS: potassium Cl 20 mEq SR tablet PO PRN (21:10)
[2025-06-04] VITALS (7 sets, daily range): BP systolic 103–108; BP diastolic 57–66; PULSE 75–123; RESP 17–21; TEMP 97.3–97.9; O2SAT 94–96
[2025-06-04 03:49] LABS: MEAN PLATELET VOLUME 8.4 FL (7.4-10.4); RED CELL DISTRIBUTION WIDTH 16.3 % (11.5-14.5)
[2025-06-04 04:03] LABS: CREATININE 1.72 MG/DL (0.60-1.10); TOTAL CARBON DIOXIDE 35.9 MMOL/L (24-32); eCRCL 55 ML/MIN; eGFR 41 ML/MIN
[2025-06-04] MEDS: digoxin 125mcg (0.125mg) tablet PO SCH (08:32)
[2025-06-04] MEDS: metoprolol succinate 25mg (24-HOUR) SR. Tablet PO ONE (11:44)
--- NOTE | 2025-06-04 12:11 | PROGRESS NOTE ---
Progress Note Cardiology Providers to CC CC: CYN NEGRO MD ~ Subjective Subjective No chest pain or pressure. Shortness for breath has much improved. Patient up and ambulatory 300 ft with no assistance. No significant shortness for breath. Heart rate 115 with activity. Objective Result Diagram: 06/04/2533706/04/25337 Objective General: Awake, alert, oriented. No apparent distress Neck: Supple. Normal range of motion. No JVD Respiratory: Lungs are clear to auscultation bilaterally. No respiratory distress. Chest: Normal shape and size. No accessory muscle use. Cardiovascular: Irregularly irregular. Variable S1-S2. No murmur, gallop, rub. Extremities: No lower extremity edema, cyanosis or clubbing. Neurologic: Alert and oriented x4. Nonfocal Psychiatric: Normal mood and affect. Skin: Normal color. Warm and dry. Coagulation Studies Laboratory Tests Test 05/30/25 17:44 05/31/25 19:35 Prothrombin Time 13.8 SECONDS (9.0-12.0) H INR International Normalized Ratio 1.4 INR Activated Partial Thromboplast Time 28 SECONDS (22-32) APTT (Heparin Protocol) 33 SECONDS (45-60) L Coagulation Comments Problem\Assessment\Plan Additional Plan This is a 59-year-old male who presented with chest pain. The following is his problem list: NSTEMI Hi sensitivity troponins trended up to greater than [id number]. Underwent PCI of the RCA with Dr. Miriam Negro. --aspirin 81 mg daily for 30 days given that he is on oral anticoagulation --Plavix 75 mg daily. 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 Lipid panel ordered --continue metoprolol. --referral for cardiac rehab Cardiogenic shock --norepinephrine has been weaned off. Dobutamine has been weaned off. --now on midodrine 10 mg t.i.d. for blood pressure support. We will wean down as tolerated as an outpatient. Cardiomyopathy Heart failure with reduced ejection fraction, acute on chronic TTE demonstrates an LVEF of 15-20%. LV mildly dilated. RV normal size with decreased function. Mild left atrial dilation. Moderate TR. Previous echocardiogram with severe biatrial dilation. Severe RV dilation. --continue metoprolol succinate --previous office visit on April 26, 2025 was recommended start Entresto, spironolactone and future SGLT2. He has not started these medications. --06/03/25: Has not now been weaned off dobutamine. We will start metoprolol for rate control. If able to tolerate we will start Entresto. Hold off on spironolactone given acute kidney injury. --currently receiving IV Lasix 20 mg q.6 hours as well as metolazone. We will recheck NT proBNP in the morning. Weaned down diuretics as tolerated. He is fluid volume-5 L yesterday and 5 L the day before that. Atrial fibrillation Status post cardioversion 05/28/25 --continue Eliquis 5 mg b.i.d. --given RVR with hypotension recommend continuing with digoxin. We will add metoprolol and monitor closely. --continue amiodarone 200 mg daily --metoprolol succinate 50 mg daily for rate control. Diabetes Hemoglobin A1c 6.9 --hold metformin for 48 hours after cardiac catheterization. Consider SGLT2 given heart failure Acute kidney injury Monitoring kidney function. --management per hospitalist Hypokalemia --recommend replacement per protocol sleep apnea, likely given apneic episodes witnessed by nursing. --outpatient sleep study recommended. Case discussed with Dr. Miriam Negro. Cardiology standpoint he is cleared for discharge home. Supervising Physician: DEVENDRA Baker NP Jun 04, 2025 12:11
[2025-06-04] MEDS ORDERED: EMPA10TA PO (13:33)
[2025-06-04] MEDS ORDERED: AMIO200T76 PO (13:33)
[2025-06-04] MEDS ORDERED: METO-395 PO (13:33)
[2025-06-04] MEDS ORDERED: ATOR20TA66 PO (13:33)
[2025-06-04] MEDS ORDERED: LAN0.125T PO (13:33)
[2025-06-04] MEDS ORDERED: CLOP75TA34 PO (13:33)
[2025-06-04] MEDS ORDERED: FURO-150 PO (13:33)
[2025-06-04] MEDS ORDERED: MIDO5TAB4 PO (13:33)
[2025-06-04] MEDS ORDERED: ASPI-1071 PO (13:33)
--- NOTE | 2025-06-04 19:58 | DISCHARGE SUMMARY-Residence ---
Discharge Summary Providers to Resident Creating Document: KULWANT ANSARI, RES ~ Discharge Summary Admission Diagnosis: NSTEMI Hospital Course DATE OF ADMISSION: 05/30/2025 DATE OF DISCHARGE: 06/04/2025 ECHO: Conclusion Left ventricle is mildly dilated with normal wall thickness. Overall systolic function is severely decreased (known). LVEF is 15-20%. The right ventricle is normal size with mildly decreased function. Elevated right heart pressures with an RVSP of 52 mmHg. Left atrium is mildly dilated. Trileaflet AV appears mildly sclerotic without stenosis. Moderate eccentric posteriorly directed insufficiency present. Mitral valve leaflets are mildly thickened with mild annular calcification. No stenosis. Mild regurgitation. The tricuspid valve is normal in structure with mild to moderate regurgitation. The pulmonary valve is normal in structure with trace insufficiency. Mild loculated pericardial effusion present without hemodynamic compromise. 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 MEDHAT NEGRO Consultants: CARDIOLOGY-DR. NEGRO Complications: NONE Condition on DC: Stable New Medications: Furosemide (Lasix) 20 Mg Tablet 20 MG PO DAILY for 30 Days, #30 TAB Amiodarone Hcl (Cordarone) 200 Mg Tablet 200 MG PO BID for 30 Days, #44 TAB Continue amiodarone 200 mg p.o. twice daily for the next two weeks and take it once daily from thereafter. Aspirin (Ecotrin*) 81 Mg Tablet.dr 1 TAB PO DAILY for 30 Days, #30 TAB.SR Atorvastatin Calcium (Atorvastatin Calcium) 20 Mg Tablet 80 MG PO DAILY for 30 Days, #120 TAB Clopidogrel Bisulfate (Clopidogrel) 75 Mg Tablet 75 MG PO DAILY for 30 Days, #30 TAB Do not stop medication unless instructed by prescriber. Digoxin (Digitek) 125 Mcg (0.125 Mg) Tablet 125 MCG PO DAILY for 30 Days, #30 TAB Empagliflozin (Jardiance) 10 Mg Tablet 10 MG PO DAILY for 30 Days, #30 TAB Metoprolol Succinate (Metoprolol Succinate) 25 Mg Tab.sr.24h 50 MG PO DAILY for 30 Days, #30 TAB.SR Midodrine HCl (Midodrine HCl) 5 Mg Tablet 10 MG PO TID@0800,1200,1600 for 30 Days, #90 TAB Continued Medications: Albuterol Sulfate/Budesonide (Airsupra 90-80 Mcg Inhaler) 90 Mcg-80 Mcg/Actuation Hfa.aer.ad 2 PUFF INH QID Apixaban (Eliquis) 5 Mg Tablet 1 TAB PO BID Ipratropium/Albuterol Sulfate (Duoneb 2.5-0.5 Mg/3 Ml Soln) 0.5 Mg-3 Mg (2.5 Mg Base)/3 Ml Ampul.neb 3 ML INH Q4H PRN for SOB or wheezing [Magnesium] () 2300 MG PO DAILY Metformin Hcl* (Metformin ER*) 500 Mg Tab.sr.24h 1 TAB PO BID Multivits-Minerals/FA/Lycopene (Men's Daily Formula Capsule) 0.4 Mg-600 Mcg Capsule 1 TAB PO DAILY Potassium Chloride (Potassium Chloride) 20 Meq Tablet.er 1 TAB PO DAILY Red Beet (Beet Root) 500 Mg Capsule 2 TAB PO DAILY Discontinued Medications: Amiodarone HCl (Amiodarone HCl) 200 Mg Tablet 1 TAB PO DAILY Furosemide (Furosemide) 40 Mg Tablet 1 TAB PO DAILY Metoprolol Succinate (Metoprolol Succinate) 100 Mg Tab.sr.24h 1 TAB PO DAILY [Mullein] () 1 CAP PO BID Tamsulosin Hcl* (Flomax*) 0.4 Mg Cap.sr.24h 1 TAB PO DAILY Torsemide (Torsemide) 20 Mg Tablet 1 TAB PO DAILY Discharge Summary: HISTORY OF PRESENT ILLNESS BY THE ADMITTING PHYSICIAN: MERCY Rose, RES: This is a very pleasant 59-year-old male patient with a past medical history of HFrEF, atrial fibrillation status post cardioversion, prediabetes, pulmonary emboli in 2022, transferred from [facility] [place] for chest pain that started yesterday at 9:00 a.m. and was initially intermittent. However, today at 9:00 a.m. it abruptly increased to 10/10 in intensity, persistent, radiating to the back, described as a pressure, worse with movement and improving with rest, ass ociated with nausea, vomiting, dizziness and lightheadedness. Patient states gaining 7 lb for the last two days, but no significant shortness of breath or any respiratory symptoms. The patient had an elective cardioversion two days ago for AFib, without complication. He uses [employer] and is followed by Dr. Negro. COURSE IN THE HOSPITAL: On initial evaluation the patient's EKG showed sinus rhythm with nonspecific ST- T segment changes. [place] [address] [place] [id number] followed by > [id number]. The on-call ui developer with angular js Dr. Negro was consulted who recommended that the patient to be started on IV heparin drip. A CTA of the chest was done which was negative for any acute pulmonary embolism. The patient was given aspirin loading dose at [facility] and was started on heparin drip. He was also started on atorvastatin 40 mg, lisinopril 5 mg and his home dose of metoprolol 100 mg. In view of the patient's congestive heart failure with reduced ejection fraction the patient was also started on Lasix 40 mg IV b.i.d.. In view of the patient's worsening clinical symptoms doctor Marky was again consulted who immediately took the patient for percutaneous coronary intervention with a right coronary artery stenting. Patient is started on aspirin 81 mg daily for 30 days, Plavix 75 mg daily, atorvastatin 80 mg p.o. daily. The patient then was transferred back to the PCU with telemetry monitoring. On the floor the patient has started developing significant hypotension and was started on IV dobutamine drip in view of his heart failure and possible cardiogenic shock. Patient was also treated with IV fluid challenges. There was no significant improvement in the patient's blood pressure and hence the patient was transferred to the intensive care unit. In the intensive care unit the patient was treated with the IV dobutamine drip and IV norepinephrine for pressure support. The patient maintain good blood pressure in the intensive care unit and was later weaned off of the pressors. The patient developed a significant atrial fibrillation with a rapid ventricular rate with a heart rate running in the 140s. He was initially treated with IV amiodarone and also with IV digoxin. Later transitioned to p.o. amiodarone, p.o. digoxin. The patient's metoprolol succinate 100 mg which was discontinued initially in view of the hypotension was restarted at 25 mg p.o. daily. The patient's heart rate was well-controlled. The patient was started on GDMT as tolerated currently holding Entresto and spironolactone with the patient's hypotension and RAJESH on CKD. He was also started on midodrine 10 mg p.o. t.i.d.. The patient's renal function improved during the course of his hospitalization. The patient's condition improved during the course of the hospitalization. The patient was also educated regarding his diabetes diagnosis and educated regarding lifestyle and management recommendations. The patient has been educated regarding the importance of maintaining compliance. Advised at discharge: Follow up with the PCP within one week. Follow up with Dr. Negro, Cardiology within the next one week. As recommended plan weekly follow up with the cardiology team until they recommend. Monitor your blood pressures closely. Keep a diary of his blood pressure and heart rate and follow up with the are ui developer with angular js Dr. Negro. In case of any worsening shortness of breath, bilateral lower extremity swelling, chest pain, palpitations call 911 or return to the ER immediately. Follow up with the PCP with CBC and CMP within one week. Get a referral for a creative specialist with the PCP in view of the CKD stage 3. Examination at the time of discharge: General: Pleasant gentleman, does not appear to be in acute distress. Has a life vest on. HEENT: Conjunctiva pink, Sclera clear, Mucus Membranes moist. Neck: Supple without masses and tenderness. Resp: Unlabored. No adventitious breath sounds heard. Heart: Irregularly irregular rate and rhythm. Abdomen: Soft and non tender no organomegaly Extremities: No edema noted in bilateral lower extremities. Skin: Warm and Dry. Neurology: No focal motor or sensory deficits. Laboratory Tests Test 06/02/25 20:09 06/03/25 09:02 06/03/25 09:08 06/03/25 13:10 Glucometer 172 mg/dl 117 mg/dl White Blood Count 9.0 X10'3 Red Blood Count 5.28 X10'6 Hemoglobin 15.4 g/dl Hematocrit 45.6 % Mean Corpuscular Volume 86.4 FL Mean Corpuscular Hemoglobin 29.1 PG Mean Corpuscular Hemoglobin Concent 33.7 g/dL Red Cell Distribution Width 16.3 % Platelet Count 239 X10'3 Mean Platelet Volume 8.7 FL Neutrophils (%) (Auto) 74.0 % Lymphocytes (%) (Auto) 11.8 % Monocytes (%) (Auto) 11.4 % Eosinophils (%) (Auto) 1.8 % Basophils (%) (Auto) 1.0 % Neutrophils # (Auto) 6.7 X10'3 Lymphocytes # (Auto) 1.1 X10'3 Monocytes # (Auto) 1.0 X10'3 Eosinophils # (Auto) 0.2 X10'3 Basophils # (Auto) 0.1 X10'3 CBC Comment Sodium Level 136 MMOL/L Potassium Level 3.3 MMOL/L Chloride Level 94 MMOL/L Carbon Dioxide Level 32.2 MMOL/L Anion Gap 10 Blood Urea Nitrogen 36 MG/DL Creatinine 1.75 MG/DL Estimated GFR/1.73 m2 40 ML/MIN BUN/Creatinine Ratio 20.6 Glucose Level 112 MG/DL Calcium Level 9.6 MG/DL Magnesium Level 1.9 MG/DL Total Bilirubin 2.1 MG/DL Aspartate Amino Transf (AST/SGOT) 184 U/L Alanine Aminotransferase (ALT/SGPT) 447 U/L Alkaline Phosphatase 113 IU/L Total Protein 7.0 G/DL Albumin 3.4 G/DL Globulin 3.6 G/DL Albumin/Globulin Ratio 0.9 Chemistry Comments Digoxin Level 0.9 NG/ML Test 06/03/25 13:24 06/03/25 16:40 06/03/25 20:17 06/04/25 03:38 Glucometer 152 mg/dl 136 mg/dl 147 mg/dl White Blood Count 11.1 X10'3 Red Blood Count 5.02 X10'6 Hemoglobin 14.7 g/dl Hematocrit 43.1 % Mean Corpuscular Volume 85.8 FL Mean Corpuscular Hemoglobin 29.3 PG Mean Corpuscular Hemoglobin Concent 34.2 g/dL Red Cell Distribution Width 16.3 % Platelet Count 239 X10'3 Mean Platelet Volume 8.4 FL Neutrophils (%) (Auto) 74.3 % Lymphocytes (%) (Auto) 10.0 % Monocytes (%) (Auto) 13.0 % Eosinophils (%) (Auto) 2.0 % Basophils (%) (Auto) 0.7 % Neutrophils # (Auto) 8.3 X10'3 Lymphocytes # (Auto) 1.1 X10'3 Monocytes # (Auto) 1.4 X10'3 Eosinophils # (Auto) 0.2 X10'3 Basophils # (Auto) 0.1 X10'3 CBC Comment Sodium Level 135 MMOL/L Potassium Level 3.2 MMOL/L Chloride Level 93 MMOL/L Carbon Dioxide Level 35.9 MMOL/L Anion Gap 6 Blood Urea Nitrogen 34 MG/DL Creatinine 1.72 MG/DL Estimated GFR/1.73 m2 41 ML/MIN BUN/Creatinine Ratio 19.8 Glucose Level 101 MG/DL Calcium Level 9.5 MG/DL Total Bilirubin 2.0 MG/DL Aspartate Amino Transf (AST/SGOT) 138 U/L Alanine Aminotransferase (ALT/SGPT) 366 U/L Alkaline Phosphatase 119 IU/L Total Protein 6.7 G/DL Albumin 3.3 G/DL Globulin 3.4 G/DL Albumin/Globulin Ratio 1.0 Chemistry Comments Test 06/04/25 07:08 06/04/25 11:33 Glucometer 125 mg/dl 190 mg/dl *Problems/Diagnosis: (1) Cardiogenic shock (2) Heart failure with reduced ejection fraction (3) Atrial fibrillation (4) Cardiomyopathy (5) Acute kidney injury superimposed on CKD (6) Cardiorenal syndrome (7) Chest pain Status: Acute (8) NSTEMI (non-ST elevation myocardial infarction) Status: Acute (9) Acute chest pain Status: Acute Total Time Spent on D/C: > 30 Minutes Date of Service: Jun 04, 2025 Billing Provider: KAREN LIN MD,KULWANT WALTERS, RES Jun 04, 2025 19:40
[2025-06-05] MEDS ORDERED: pantoprazole 40mg Tablet.DR PO SCH (07:30)
[2025-06-05] MEDS ORDERED: metoprolol succinate 25mg (24-HOUR) SR. Tablet PO SCH (08:00)
--- NOTE | 2025-06-23 20:00 | CARDIOLOGY REPORT ---
DATE OF SERVICE: 05/31/2025 DICTATING PHYSICIAN: Pan Negro MD DATE OF STUDY: 05/31/2025 PROCEDURES: * Left heart catheterization. * Selective coronary angiography. * Left ventriculography. * Angioplasty of the right coronary artery. * Stenting x 1 of the right coronary artery. * Conscious sedation monitoring time for 30 minutes. INDICATION: Non-STEMI. PHYSICIAN: Yasmine Negro MD DESCRIPTION OF PROCEDURE: After informed consent was obtained, the patient was brought to the lab where he was prepped and draped in the usual sterile fashion. After adequate anesthesia was obtained using 1% lidocaine to the right groin, a 6-[place] sheath was inserted into the right femoral artery. Thereafter, using a JL4 followed by a JR4 catheter, selective coronary angiography was performed. The pigtail catheter was used to cross the left ventricle where left ventricle end diastolic pressure was obtained. Next, PCI was performed as described below. HEMODYNAMICS: For the patient's hemodynamics, please refer to the event log. Left ventricular end diastolic pressure was 33 mmHg. FINDINGS: The left main coronary artery is a short caliber vessel free of significant disease. The left anterior descending coronary artery is a medium caliber transapical vessel with a 40% to 50% mid vessel stenosis at the takeoff of the diagonal branch. Thrombus in the proximal diagonal branch is noted. The circumflex coronary artery is a medium caliber vessel. The ongoing circumflex coronary artery has a 60% to 70% stenosis. The right coronary artery is a large dominant vessel with an 80% to 90% hazy proximal stenosis, 60% mid-vessel stenosis and 30% distal stenosis is noted. Left ventriculography was not performed. The left ventricle was crossed. Left ventricular end diastolic pressure 33 mmHg. PERCUTANEOUS CORONARY INTERVENTION: Using an extra backup RCA guiding catheter with side holes, a 0.014-choice PT wire was carefully navigated across the lesion. This was then predilated with a 2.5 x 12 mm tract balloon. Next, using a 3.5 x 12 mm Yossi [place] stent, stent was advanced across the proximal lesion where it was deployed to rated burst atmospheres. Follow-up angiography revealed very good angiographic results. IMPRESSION: * Angioplasty/senting of an 80% to 90% proximal RCA with a 3.5 x 12 mm Macclenny [place] stent with very good angiographic results. The patient harbors a 60% mid RCA stenosis as well. * Hazy 40% to 50% stenosis of the mid LAD at the bifurcation. Thrombus noted in the diagonal branch of the LAD. * A 60% to 70% stenosis of a small caliber ongoing circumflex coronary artery. * Left ventricular end diastolic pressure is 33 mmHg. Pan Negro MD TID: [id number] RECEIPT: [id number] LISSET/DAVON/DURAN
== END 2025-06-04 15:45 | disposition home or self-care (01) | DRG 321 ==
LOC: ER 16:15 → ED HOLD 19:25 → EDBEDREQ 21:10 → PCU 3S 21:55 → CICU 2S 05-31 20:24 → PCU 3S 06-03 19:25
PROVIDERS: ADMIT Internal Medicine Critical Care Medicine; ATTEND Family Medicine
PROC: 027034Z Dilation of Coronary Artery, One Artery with Drug-eluting Intraluminal Device, Percutaneous Approach (ICD-10-PCS; principal; 2025-05-31)
PROC: 4A023N7 Measurement of Cardiac Sampling and Pressure, Left Heart, Percutaneous Approach (ICD-10-PCS; 2025-05-31)
PROC: B2111ZZ Fluoroscopy of Multiple Coronary Arteries using Low Osmolar Contrast (ICD-10-PCS; 2025-05-31)
PROC: B2151ZZ Fluoroscopy of Left Heart using Low Osmolar Contrast (ICD-10-PCS; 2025-05-31)
PROC: 5A0935A Assistance with Respiratory Ventilation, Less than 24 Consecutive Hours, High Flow/Velocity Cannula (ICD-10-PCS; 2025-05-31)
PROC: 02HV33Z Insertion of Infusion Device into Superior Vena Cava, Percutaneous Approach (ICD-10-PCS; 2025-06-01)
PROC: B548ZZA Ultrasonography of Superior Vena Cava, Guidance (ICD-10-PCS; 2025-06-01)
PROC: 5A0935A Assistance with Respiratory Ventilation, Less than 24 Consecutive Hours, High Flow/Velocity Cannula (ICD-10-PCS; 2025-06-01)
DX: I21.4 Non-ST elevation (NSTEMI) myocardial infarction (principal); I50.23 Acute on chronic systolic (congestive) heart failure; R57.0 Cardiogenic shock; J96.00 Acute respiratory failure, unspecified whether with hypoxia or hypercapnia; K72.00 Acute and subacute hepatic failure without coma; I13.0 Hypertensive heart and chronic kidney disease with heart failure and stage 1 through stage 4 chronic kidney disease, or unspecified chronic kidney disease; I42.0 Dilated cardiomyopathy; N17.9 Acute kidney failure, unspecified; I95.9 Hypotension, unspecified; E87.6 Hypokalemia; I25.10 Atherosclerotic heart disease of native coronary artery without angina pectoris; I48.91 Unspecified atrial fibrillation; E11.22 Type 2 diabetes mellitus with diabetic chronic kidney disease; N18.31 Chronic kidney disease, stage 3a; Z79.01 Long term (current) use of anticoagulants; Z79.899 Other long term (current) drug therapy; Z79.84 Long term (current) use of oral hypoglycemic drugs; Z86.711 Personal history of pulmonary embolism; Z86.718 Personal history of other venous thrombosis and embolism
CPT/HCPCS: 93306; 93458; 96365; 96376; 99285; C9600; 36415; 36600; 71045; 80048; 80053; 80061; 80076; 80162; 81003; 82570; 82803; 82810; 82948; 83036; 83605; 83690; 83735; 83880; 83935; 84100; 84132; 84133; 84145; 84300; 84439; 84443; 84484; 84540; 85018; 85025; 85610; 85730; 87040; 87081; 93005; 94640; 94760; 97116; 97161; 97530; 99152; 99153; A4314; A4333; A4349; A4615; A6258; A6402; A6449; A6590; C1725; C1751; C1760; C1769; C1874; G0378; J0282; J1160; J1250; J1644; J1815; J1938; J2003; J2250; J2270; J2405; J2470; J2543; J3010; J3490; J7030; J7040; J7120; Q9967